=== PATIENT | female | born 1970 | race Caucasian/White ===

== ENCOUNTER 2022-07-09 17:50 | Inpatient (IN) | payer OTHER, SELFPAY ==
--- NOTE | 2022-07-09 17:51 | ED_ITS ---
HPI - General Adult General Chief complaint: Psychiatric Symptoms <EDNA Olea - Last Filed: 07/09/22 19:50> Stated complaint: Hallucinations <EDNA Olea - Last Filed: 07/09/22 19:50> Time Seen by Provider: 07/09/22 19:50 <EDNA Olea - Last Filed: 07/09/22 19:50> Source: patient and EMS <EDNA Olea - Last Filed: 07/09/22 19:50> Mode of arrival: EMS <EDNA Olea - Last Filed: 07/09/22 19:50> Limitations: no limitations <EDNA Olea - Last Filed: 07/09/22 19:50> History of Present Illness HPI narrative: This is a 52-year-old female self-reported history of anxiety, panic attack, depression, schizophrenia, bipolar disorder presenting to the emergency department after she relapsed on crack and heroin, she tells me that she is currently seeing and hearing voices that are telling her to harm herself and other people, she tells me she does not have a particular plan and she is not sure if she would do it. She reports that she is on methadone however today use crack and heroin. She has not been taking her medications as prescribed. Patient denies alcohol, tobacco. Denies any medical complaints at this time. <EDNA Olea - Last Filed: 07/09/22 19:50> Related Data Home medications: Home Medications Medication Instructions Recorded Confirmed albuterol sulfate 2.5 mg/3 mL 1 vial inhalation Q6H PRN 07/10/22 07/10/22 (0.083 %) solution for nebulization Shortness Of Breath albuterol sulfate 90 mcg/actuation 2 puff inhalation Q4H PRN wheezing 07/10/22 07/10/22 aerosol inhaler (Ventolin HFA) clonidine HCl 0.1 mg tablet 1 tab PO BID PRN Anxiety 07/10/22 07/10/22 fluticasone propionate 110 2 puff inhalation BID asthma 07/10/22 07/10/22 mcg/actuation HFA aerosol inhaler (Flovent HFA) methadone 10 mg/mL oral concentrate 50 mg PO BID 07/10/22 07/10/22 <EDNA Olea - Last Filed: 07/09/22 19:50> Allergies/adverse reactions: Allergies Allergy/AdvReac Type Severity Reaction Status Date / Time Sulfa (Sulfonamide Allergy Unknown UNKNOWN Unverified 05/14/20 16:01 Antibiotics) [SULFA (SULFONAMIDE ANTIBIOTICS)] <EDNA Olea - Last Filed: 07/09/22 19:50> Review of Systems Review of Systems: Constitutional : No Fever, No Chills ENT/Mouth : No Ear Pain, No Nasal Congestion, No sore throat Eyes: No Eye Pain, No Swelling, No Redness Cardiovascular : No Chest Pain, No SOB Respiratory : No Cough, No Sputum, No Dyspnea Gastrointestinal : No Nausea, No Vomiting, No Diarrhea, No Hematochezia, No Melena Genitourinary : No Dysuria, No Urinary Frequency, No Hematuria Musculoskeletal : No Myalgias Skin : No Skin Lesions, No rash Neuro : No Weakness, No Numbness, No Paresthesias, No Dizziness, No Headache Psych : positive Anxiety, positive Depression, positive SI/HI, + V/A/T hallucinations All other systems reviewed and are negative <EDNA Olea - Last Filed: 07/09/22 19:50> Yes all other systems are reviewed and are negative <EDNA Olea - Last Filed: 07/09/22 19:50> PMFSH Past Medical History Attestation statement: The following information was validated with the patient. <EDNA Olea - Last Filed: 07/09/22 19:50> Source: old records reviewed and nursing notes reviewed <EDNA Olea - Last Filed: 07/09/22 19:50> Social History Social History: Social History Smoked in Last 30 Days: No Use of substances other than those prescribed or required for medical reasons: Yes Substance Use Type: Crack/Cocaine and Heroin Substance Use Frequency: Recent Binge Last Used Substance: Just Prior to Admission Any prior treatment program specific to substance use: No Advance Directives: No <EDNA Olea Last Filed: 07/09/22 19:50> Physical Exam ED Vital Signs: Vital Signs - 24 hr 07/09/22 17:58 07/09/22 23:51 07/10/22 07:24 Temperature 98.5 F 98.6 F Pulse Rate 59 56 Respiratory Rate 16 16 16 Blood Pressure 146/65 H 169/88 H Pulse Oximetry 98 99 Oxygen Delivery Method Room Air Room Air BMI result Body Mass Index 30.0 vss <EDNA Olea - Last Filed: 07/09/22 19:50> Vital Signs - 24 hr 07/09/22 17:58 07/09/22 23:51 07/10/22 07:24 Temperature 98.5 F 98.6 F Pulse Rate 59 56 Respiratory Rate 16 16 16 Blood Pressure 146/65 H 169/88 H Pulse Oximetry 98 99 Oxygen Delivery Method Room Air Room Air BMI result Body Mass Index 30.0 <Lelo Wahl MD - Last Filed: 07/10/22 12:24> Appearance: Alert.? Oriented X3.? No acute distress.? Head: Normocephalic, atraumatic, no step-offs or deformities Eyes: Pupils equal, round and reactive to light.? Neck: Normal inspection.? Neck supple.? CVS: Normal heart rate and rhythm.? Pulses normal.? Respiratory: No respiratory distress.? Breath sounds normal.? Abdomen: Soft and nontender.? Skin: Skin warm and dry.? Normal skin color.? Normal skin turgor.? Extremities: No lower extremity edema.? No calf ttp. 5/5 strength to bilateral upper and lower extremities Neuro: Oriented X 3.? No motor deficit.? No sensory deficit. CN 2-12 intact <EDNA Olea - Last Filed: 07/09/22 19:50> Course Reevaluation(s) Reevaluation #1: CBC appears to be within normal limits, chemistry with no acute e lectrolyte abnormalities requiring intervention. Urine clean. Urine toxicology positive for opiates, fentanyl, cocaine. Salicylates, acetaminophen negative. Ethanol negative. COVID negative. At this time patient will be placed into physician observation to allow more time to be evaluated by the behavioral health team. At time observation was started patient common cooperative no acute distress will continue to monitor. <EDNA Olea Last Filed: 07/09/22 19:50> Time: 19:49 <EDNA Olea - Last Filed: 07/09/22 19:50> Reevaluation #2: 52-year-old female here for substance abuse and hallucination, has been evaluated by [facility] bed search is underway, stable vital signs, no events overnight reported by the nurse, continue with physician observation. <Lelo Wahl MD - Last Filed: 07/10/22 12:24> Time: 12:23 <Lelo Wahl MD - Last Filed: 07/10/22 12:24> Medications Administered Generic Name Dose Route Start Last Admin Trade Name Freq PRN Reason Stop Dose Admin Methadone HCl 50 mg 07/10/22 10:00 07/10/22 10:30 Methadone Hcl 20 Mg/2 Ml Oral.Conc PO 50 mg BID REGINE Administration <EDNA Olea - Last Filed: 07/09/22 19:50> Medications Administered Generic Name Dose Route Start Last Admin Trade Name Freq PRN Reason Stop Dose Admin Methadone HCl 50 mg 07/10/22 10:00 07/10/22 10:30 Methadone Hcl 20 Mg/2 Ml Oral.Conc PO 50 mg BID REGINE Administration <Lelo Wahl MD - Last Filed: 07/10/22 12:24> Medical Decision Making [facility] Narrative Medical decision making narrative: 1829 52-year-old female presents with substance abuse, visual, auditory and tactile hallucinations, passive SI and HI. Physical examination benign however patient intermittently speaking to herself. Plan medical clearance evaluation by the behavioral health team. <EDNA Olea - Last Filed: 07/09/22 19:50> Medical Records Medical records reviewed: Yes I reviewed the patient's medical records. <EDNA Olea - Last Filed: 07/09/22 19:50> Lab Data Lab results reviewed: Yes I reviewed the patient's lab results. <EDNA Olea - Last Filed: 07/09/22 19:50> Result diagrams: : 07/09/22 18:48 07/09/22 18:48 <EDNA Olea - Last Filed: 07/09/22 19:50> Labs: Lab Results 07/09/22 07/09/22 07/09/22 Range/Units 18:14 18:14 18:14 WBC (4.8-10.8) X10*3/uL RBC (4.20-5.50) X10*6/uL Hgb (12.0-16.0) g/dl Hct (37.0-47.0) % MCV (80.0-98.0) fL MCH (27.0-33.0) pg MCHC (31.0-35.0) g/dl RDW (11.0-16.0) % Plt Count (160-400) X10*3/uL MPV (9.4-12.3) fL Immature Gran % (Auto) (0.0-0.4) % Neut % (Auto) (45-73) % Lymph % (Auto) (20-40) % [place] % (Auto) (2-11) % Eos % (Auto) (0-4) % Baso % (Auto) (0-2) % Lymph # (Auto) (1.2-4.9) X10*3/uL [place] # (Auto) (0.1-1.2) X10*3/uL Eos # (Auto) (0.0-0.4) X10*3/uL Baso # (Auto) (0.0-0.2) X10*3/uL Abs Immat Gran (auto) (0.00-0.03) X10*3/uL Absolute Neuts (auto) (2.0-8.3) x10*3/uL Absolute Nucleated RBC (0.0-0.012) X10*3/uL Nucleated RBC % (auto) (0.0-0.2) /100WBC Sodium (135-145) mmol/L Potassium (3.3-5.1) mmol/L Chloride (96-108) mmol/L Carbon Dioxide (22-29) mmol/L Anion Gap (12-20) BUN (9-16) mg/dL Creatinine (0.5-1.4) mg/dL Estim Creat Clear Calc Estimated GFR Random Glucose (60-115) mg/dL Calcium (8.4-10.2) mg/dL Magnesium (1.6-2.6) mg/dL Total Bilirubin (0.0-1.0) mg/dL AST (5-31) U/L ALT (0-31) U/L Alkaline Phosphatase (39-117) U/L Total Protein (6.5-8.0) g/dL Albumin (3.5-5.0) g/dL Urine Color Yellow Urine Appearance Clear Urine pH 7.5 (5.0-9.0) Ur Specific [place] 1.015 (1.005-1.025) Urine Protein Negative (Neg-Trace) mg/dL Urine Glucose (UA) Negative (Negative) mg/dL Urine Ketones Negative (Negative) mg/dL Urine Blood Negative (Negative) Urine Nitrite Negative (Negative) Ur Leukocyte Esterase Negative (Negative) Salicylates (15-30) mg/dL Urine Opiates Screen POSITIVE H (Not Detect) Urine Fentanyl Screen POSITIVE H (Not Detect) Acetaminophen (<30) mcg/mL Ur Barbiturates Screen Not Detected (Not Detect) Ur Phencyclidine Scrn Not Detected (Not Detect) Ur Amphetamines Screen Not Detected (Not Detect) U Benzodiazepines Scrn Not Detected (Not Detect) Urine Cocaine Screen POSITIVE H (Not Detect) U Marijuana (THC) Screen Not Detected (Not Detect) Ethyl Alcohol mg/dL COVID-19 (ISAAC) Negative (Negative) COVID-19 Clin Com See Note 07/09/22 07/09/22 Range/Units 18:48 18:48 WBC 7.9 (4.8-10.8) X10*3/uL RBC 4.03 L (4.20-5.50) X10*6/uL Hgb 11.4 L (12.0-16.0) g/dl Hct 35.3 L (37.0-47.0) % MCV 87.6 (80.0-98.0) fL MCH 28.3 (27.0-33.0) pg MCHC 32.3 (31.0-35.0) g/dl RDW 13.0 (11.0-16.0) % Plt Count 222 (160-400) X10*3/uL MPV 10.1 (9.4-12.3) fL Immature Gran % (Auto) 0.1 (0.0-0.4) % Neut % (Auto) 59.2 (45-73) % Lymph % (Auto) 32.2 (20-40) % [place] % (Auto) 6.5 (2-11) % Eos % (Auto) 1.4 (0-4) % Baso % (Auto) 0.6 (0-2) % Lymph # (Auto) 2.5 (1.2-4.9) X10*3/uL [place] # (Auto) 0.5 (0.1-1.2) X10*3/uL Eos # (Auto) 0.1 (0.0-0.4) X10*3/uL Baso # (Auto) 0.1 (0.0-0.2) X10*3/uL Abs Immat Gran (auto) 0.01 (0.00-0.03) X10*3/uL Absolute Neuts (auto) 4.7 (2.0-8.3) x10*3/uL Absolute Nucleated RBC 0.000 (0.0-0.012) X10*3/uL Nucleated RBC % (auto) 0.0 (0.0-0.2) /100WBC Sodium 141 (135-145) mmol/L Potassium 3.7 (3.3-5.1) mmol/L Chloride 104 (96-108) mmol/L Carbon Dioxide 27 (22-29) mmol/L Anion Gap 14 (12-20) BUN 17 H (9-16) mg/dL Creatinine 0.84 (0.5-1.4) mg/dL Estim Creat Clear Calc 78.9 Estimated GFR > 60 Random Glucose 98 (60-115) mg/dL Calcium 8.8 (8.4-10.2) mg/dL Magnesium 1.9 (1.6-2.6) mg/dL Total Bilirubin 0.3 (0.0-1.0) mg/dL AST 49 H (5-31) U/L ALT 35 H (0-31) U/L Alkaline Phosphatase 91 (39-117) U/L Total Protein 6.5 (6.5-8.0) g/dL Albumin 3.9 (3.5-5.0) g/dL Urine Color Urine Appearance Urine pH (5.0-9.0) Ur Specific [place] (1.005-1.025) Urine Protein (Neg-Trace) mg/dL Urine Glucose (UA) (Negative) mg/dL Urine Ketones (Negative) mg/dL Urine Blood (Negative) Urine Nitrite (Negative) Ur Leukocyte Esterase (Negative) Salicylates < 5.0 L (15-30) mg/dL Urine Opiates Screen (Not Detect) Urine Fentanyl Screen (Not Detect) Acetaminophen < 1 (<30) mcg/mL Ur Barbiturates Screen (Not Detect) Ur Phencyclidine Scrn (Not Detect) Ur Amphetamines Screen (Not Detect) U Benzodiazepines Scrn (Not Detect) Urine Cocaine Screen (Not Detect) U Marijuana (THC) Screen (Not Detect) Ethyl Alcohol < 10 mg/dL COVID-19 (ISAAC) (Negative) COVID-19 Clin Com <EDNA Olea - Last Filed: 07/09/22 19:50> Lab Results 07/09/22 07/09/22 07/09/22 Range/Units 18:14 18:14 18:14 WBC (4.8-10.8) X10*3/uL RBC (4.20-5.50) X10*6/uL Hgb (12.0-16.0) g/dl Hct (37.0-47.0) % MCV (80.0-98.0) fL MCH (27.0-33.0) pg MCHC (31.0-35.0) g/dl RDW (11.0-16.0) % Plt Count (160-400) X10*3/uL MPV (9.4-12.3) fL Immature Gran % (Auto) (0.0-0.4) % Neut % (Auto) (45-73) % Lymph % (Auto) (20-40) % [place] % (Auto) (2-11) % Eos % (Auto) (0-4) % Baso % (Auto) (0-2) % Lymph # (Auto) (1.2-4.9) X10*3/uL [place] # (Auto) (0.1-1.2) X10*3/uL Eos # (Auto) (0.0-0.4) X10*3/uL Baso # (Auto) (0.0-0.2) X10*3/uL Abs Immat Gran (auto) (0.00-0.03) X10*3/uL Absolute Neuts (auto) (2.0-8.3) x10*3/uL Absolute Nucleated RBC (0.0-0.012) X10*3/uL Nucleated RBC % (auto) (0.0-0.2) /100WBC Sodium (135-145) mmol/L Potassium (3.3-5.1) mmol/L Chloride (96-108) mmol/L Carbon Dioxide (22-29) mmol/L Anion Gap (12-20) BUN (9-16) mg/dL Creatinine (0.5-1.4) mg/dL Estim Creat Clear Calc Estimated GFR Random Glucose (60-115) mg/dL Calcium (8.4-10.2) mg/dL Magnesium (1.6-2.6) mg/dL Total Bilirubin (0.0-1.0) mg/dL AST (5-31) U/L ALT (0-31) U/L Alkaline Phosphatase (39-117) U/L Total Protein (6.5-8.0) g/dL Albumin (3.5-5.0) g/dL Urine Color Yellow Urine Appearance Clear Urine pH 7.5 (5.0-9.0) Ur Specific [place] 1.015 (1.005-1.025) Urine Protein Negative (Neg-Trace) mg/dL Urine Glucose (UA) Negative (Negative) mg/dL Urine Ketones Negative (Negative) mg/dL Urine Blood Negative (Negative) Urine Nitrite Negative (Negative) Ur Leukocyte Esterase Negative (Negative) Salicylates (15-30) mg/dL Urine Opiates Screen POSITIVE H (Not Detect) Urine Fentanyl Screen POSITIVE H (Not Detect) Acetaminophen (<30) mcg/mL Ur Barbiturates Screen Not Detected (Not Detect) Ur Phencyclidine Scrn Not Detected (Not Detect) Ur Amphetamines Screen Not Detected (Not Detect) U Benzodiazepines Scrn Not Detected (Not Detect) Urine Cocaine Screen POSITIVE H (Not Detect) U Marijuana (THC) Screen Not Detected (Not Detect) Ethyl Alcohol mg/dL COVID-19 (ISAAC) Negative (Negative) COVID-19 Clin Com See Note 07/09/22 07/09/22 Range/Units 18:48 18:48 WBC 7.9 (4.8-10.8) X10*3/uL RBC 4.03 L (4.20-5.50) X10*6/uL Hgb 11.4 L (12.0-16.0) g/dl Hct 35.3 L (37.0-47.0) % MCV 87.6 (80.0-98.0) fL MCH 28.3 (27.0-33.0) pg MCHC 32.3 (31.0-35.0) g/dl RDW 13.0 (11.0-16.0) % Plt Count 222 (160-400) X10*3/uL MPV 10.1 (9.4-12.3) fL Immature Gran % (Auto) 0.1 (0.0-0.4) % Neut % (Auto) 59.2 (45-73) % Lymph % (Auto) 32.2 (20-40) % [place] % (Auto) 6.5 (2-11) % Eos % (Auto) 1.4 (0-4) % Baso % (Auto) 0.6 (0-2) % Lymph # (Auto) 2.5 (1.2-4.9) X10*3/uL [place] # (Auto) 0.5 (0.1-1.2) X10*3/uL Eos # (Auto) 0.1 (0.0-0.4) X10*3/uL Baso # (Auto) 0.1 (0.0-0.2) X10*3/uL Abs Immat Gran (auto) 0.01 (0.00-0.03) X10*3/uL Absolute Neuts (auto) 4.7 (2.0-8.3) x10*3/uL Absolute Nucleated RBC 0.000 (0.0-0.012) X10*3/uL Nucleated RBC % (auto) 0.0 (0.0-0.2) /100WBC Sodium 141 (135-145) mmol/L Potassium 3.7 (3.3-5.1) mmol/L Chloride 104 (96-108) mmol/L Carbon Dioxide 27 (22-29) mmol/L Anion Gap 14 (12-20) BUN 17 H (9-16) mg/dL Creatinine 0.84 (0.5-1.4) mg/dL Estim Creat Clear Calc 78.9 Estimated GFR > 60 Random Glucose 98 (60-115) mg/dL Calcium 8.8 (8.4-10.2) mg/dL Magnesium 1.9 (1.6-2.6) mg/dL Total Bilirubin 0.3 (0.0-1.0) mg/dL AST 49 H (5-31) U/L ALT 35 H (0-31) U/L Alkaline Phosphatase 91 (39-117) U/L Total Protein 6.5 (6.5-8.0) g/dL Albumin 3.9 (3.5-5.0) g/dL Urine Color Urine Appearance Urine pH (5.0-9.0) Ur Specific [place] (1.005-1.025) Urine Protein (Neg-Trace) mg/dL Urine Glucose (UA) (Negative) mg/dL Urine Ketones (Negative) mg/dL Urine Blood (Negative) Urine Nitrite (Negative) Ur Leukocyte Esterase (Negative) Salicylates < 5.0 L (15-30) mg/dL Urine Opiates Screen (Not Detect) Urine Fentanyl Screen (Not Detect) Acetaminophen < 1 (<30) mcg/mL Ur Barbiturates Screen (Not Detect) Ur Phencyclidine Scrn (Not Detect) Ur Amphetamines Screen (Not Detect) U Benzodiazepines Scrn (Not Detect) Urine Cocaine Screen (Not Detect) U Marijuana (THC) Screen (Not Detect) Ethyl Alcohol < 10 mg/dL COVID-19 (ISAAC) (Negative) COVID-19 Clin Com <Lelo Wahl MD - Last Filed: 07/10/22 12:24> Critical Care Time Critical Care Time Critical Care Time: No <EDNA Olea - Last Filed: 07/09/22 19:50> Discharge Plan Discharge Clinical Impression: Suicidal ideation, Depression, Acute anxiety, Hallucinations <EDNA Olea - Last Filed: 07/09/22 19:50> Patient Disposition: Still a Patient <EDNA Olea - Last Filed: 07/09/22 19:50> Prescriptions: No Action clonidine HCl 0.1 mg tablet 1 tab PO BID PRN (Reason: Anxiety) albuterol sulfate 2.5 mg /3 mL (0.083 %) solution for nebulization 1 vial inhalation Q6H PRN (Reason: Shortness Of Breath) albuterol sulfate [Ventolin HFA] 90 mcg/actuation HFA aerosol inhaler 2 puff inhalation Q4H PRN (Reason: wheezing) fluticasone propionate [Flovent HFA] 110 mcg/actuation HFA aerosol inhaler 2 puff inhalation BID methadone 10 mg/mL Concentrate 50 mg PO BID Rx Instructions: per per [facility] ([phone]). see pharmacy note <EDNA Olea - Last Filed: 07/09/22 19:50>
[2022-07-09 17:58] VITALS: BP 116/74; BP 146/65; PULSE 59; PULSE 64; RESP 16; TEMP 36.9; O2SAT 97; O2SAT 98
[2022-07-09 18:24] LABS: Appearance Urine Clear; Color Urine Yellow; Glucose Urine UA Negative (Negative); Leukocyte Esterase Urine Negative (Negative); Nitrite Urine Negative (Negative); PH 7.5 (5.0-9.0); Specific Gravity - Urine 1.015 (1.005-1.025); Urine Blood Negative (Negative); Urine Ketones Negative (Negative); Urine Protein Negative (Neg-Trace)
[2022-07-09 18:34] LABS: Amphetamine Screen Urine Not Detected (Not Detect); Barbiturates, Urine Not Detected (Not Detect); Benzodiazepines Screen Urine Not Detected (Not Detect); Cannabinoid Screen Urine Not Detected (Not Detect); Cocaine Screen Urine POSITIVE (Not Detect); Fentanyl, urine POSITIVE (Not Detect); Opiate Screen Urine POSITIVE (Not Detect); Phencyclidine Screen Urine Not Detected (Not Detect)
[2022-07-09 18:51] LABS: COVID-19 Test Negative (Negative); IDNOW Serial# 08D9AD1C
[2022-07-09 18:51] LABS: MANUAL DIFF FLAG NO
[2022-07-09 18:56] LABS: Basophils Absolute Auto 0.1 X10*3/uL (0.0-0.2); Basophils Percent Auto 0.6 % (0-2); Eosinophils Absolute Auto 0.1 X10*3/uL (0.0-0.4); Eosinophils Percent Auto 1.4 % (0-4); Hematocrit 35.3 % (37.0-47.0); Hemoglobin 11.4 g/dl (12.0-16.0); Imm Gran Abs Auto 0.01 X10*3/uL (0.00-0.03); Imm Gran Pct Auto 0.1 % (0.0-0.4); Lymphocytes Absolute Auto 2.5 X10*3/uL (1.2-4.9); Lymphocytes Percent Auto 32.2 % (20-40); Mean Corpuscular HGB Conc 32.3 g/dl (31.0-35.0); Mean Corpuscular Hemoglobin 28.3 pg (27.0-33.0); Mean Corpuscular Volume 87.6 fL (80.0-98.0); Mean Platelet Volume 10.1 fL (9.4-12.3); Monocytes Absolute Auto 0.5 X10*3/uL (0.1-1.2); Monocytes Percent Auto 6.5 % (2-11); Neutrophils Absolute Auto 4.7 x10*3/uL (2.0-8.3); Neutrophils Percent Auto 59.2 % (45-73); Platelet Count 222 X10*3/uL (160-400); Red Blood Count 4.03 X10*6/uL (4.20-5.50); White Blood Count 7.9 X10*3/uL (4.8-10.8)
[2022-07-09 19:09] LABS: Acetaminophen LAB < 1 mcg/mL (<30); Alanine Aminotransferase 35 U/L (0-31); Albumin Level 3.9 g/dL (3.5-5.0); Alkaline Phosphatase 91 U/L (39-117); Anion Gap 14 (12-20); Aspartate Amino Transferase 49 U/L (5-31); Bilirubin Total 0.3 mg/dL (0.0-1.0); Blood Urea Nitrogen 17 mg/dL (9-16); Calcium 8.8 mg/dL (8.4-10.2); Carbon Dioxide 27 mmol/L (22-29); Chloride 104 mmol/L (96-108); Creatinine Clr Calc Pharmacy 78.9; Estimated Glomerular Filt Rate > 60; Ethanol < 10 mg/dL; Glucose Random 98 mg/dL (60-115); Magnesium 1.9 mg/dL (1.6-2.6); Potassium 3.7 mmol/L (3.3-5.1); Salicylate < 5.0 mg/dL (15-30); Sodium 141 mmol/L (135-145); Total Protein 6.5 g/dL (6.5-8.0)
[2022-07-09 23:51] VITALS: BP 169/88; PULSE 56; RESP 16; TEMP 37; O2SAT 99
--- OUTSIDE RECORDS SUMMARY | 2022-07-10 03:18 | XMS_ITS | Continuity of Care Document ---
:1970 Author Organization [facility] Address [address] [place] [id number]- Care Team Providers Name Role Phone Passer Ame BISHOP Primary Care Physician [phone] Encounter [facility] Date(s): 11/08/21 - 12/22/[address] [address] Attending Physician: Stoney Greco Admitting Physician: Stoney Greco Referring Physician: Stoney Greco Allergies, Adverse Reactions, Alerts Substance Reaction Severity Status sulfa drugs Active Immunizations Given and Recorded Vaccine Date Status Refusal Reason influenza virus vaccine, inactivated 07/19/21 Recorded tetanus/diphtheria/pertussis, acel(Tdap) 07/19/21 Recorde d SARS-CoV-2 (COVID-19) mRNA-1273 vaccine 01/11/21 Recorded Medications albuterol CFC free 90 mcg/inh inhalation aerosol 2, puffs, Inhalation, 4 times a day, PRN, # 8.5 Gm, Refills 0, Tot. Refills 0, Maintenance, 10/20/2109:09:00 EST, Aerosol, Route to Pharmacy Electronically, NCPDP_[id number], [id number], 162.5, cm, 10/20/20 9:49:00 EST, Height... Start Date: 10/20/20 Status: OrderedBoostrix (Tdap) intramuscular suspension 0.5 mL, Intramuscular, Once, # 5 mL, 0 Refills, Soft Stop, 07/19/21 9:13:00 EST, Suspension, [facility]-[id number], Partial fill upon patient request if the prescription is for a schedule II opioid drug., 0.5 mL Intramuscular Once, 162.5,... Start Date: 07/19/21 Status: OrderedcloNIDine 0.1 mg oral tablet Refills 0, Maintenance, 07/19/21 8:37:00 EST, Partial fill upon patient request if the prescription is for a schedule II opioid drug. Start Date: 07/19/21 Status: OrderedFlovent HFA 110 mcg/inh inhalation aerosol 2 puffs, Inhalation, 2 times a day, for asthma control rinse mouth and throat after use label in bermudian, # 12 Gm, 11 Refills, Maintenance, 07/19/21 9:05:00 EST, Aerosol, [id number], Partial fill upon patient request if the p... Start Date: 07/19/21 Status: Orderedinfluenza virus vaccine, inactivated adjuvanted preservative-free quadrivalent intramuscular susp 0.5 mL, Intramuscular, Once, # 0.5 mL, 0 Refills, Soft Stop, 07/19/21 9:13:00 EST, Suspension, [id number], Partial fill upon patient request if the prescription is for a schedule II opioid drug., 0.5 mL Intramuscular Once, 162.... Start Date: 07/19/21 Status: OrderedMethadone = 70 mg, By Mouth, Daily, 0 Refills, Maintenance, 10/15/20 2:11:00 EST, Partial fill upon patient request if the prescription is for a schedule II opioid drug. Start Date: 10/15/20 Status: Orderednabumetone 750 mg oral tablet 1 tablet, By Mouth, 2 times a day with meals, FOR BACK AND SHOULDER PAIN., # 56 tablet, 5 Refills, [facility], 162.5, cm, 11/03/21 10:17:00 EST, Height, 54.54, kg, 10/15/20 0:39:00 EST, DryWeight Start Date: 12/09/21 Status: Orderedomeprazole 20 mg oral enteric coated capsule 1 capsule = 20 mg, By Mouth, Daily, for gastritis label in bermudian, # 30 capsule, 6 Refills, Maintenance, 07/19/21 9:09:00 EST, EC Capsule, [facility]-[id number], Partial fill upon patientrequest if the prescription is for a schedule II... Start Date: 07/19/21 Status: Orderedprazosin 1 mg oral capsule 1 mg, 1, capsule, By Mouth, 3 times a day, Refills 0, Maintenance, 07/19/21 8:37:00 EST, Partial fill upon patient request if the prescription is for a schedule II opioid drug. Start Date: 07/19/21 Status: OrderedProAir HFA 90 mcg/inh inhalation aerosol 2 puffs, Inhalation, Every 4 hours, PRN as needed for wheezing, label in bermudian, # 8.5 Gm, 11 Refills, Maintenance, 07/19/21 9:09:00 EST, Aerosol, [facility]-[id number], Partial fill uponpatient request if the prescription is for a sche... Start Date: 07/19/21 Status: OrderedSenna 8.6 mg oral tablet 8.6 mg, 1, tablet, By Mouth, Daily at bedtime, for constipation with plenty of water label in bermudian, # 100 tablet, Refills 6, Tot. Refills 6, Maintenance, 07/19/21 9:09:00 EST, Route to Pharmacy Electronically, [facility]-[id number],... Start Date: 07/19/21 Status: OrderedSEROquel 300 mg oral tablet 1 tablet = 300 mg, By Mouth, 2 times a day, 0 Refills, Maintenance, 07/19/21 8:38:00 EST, Partial fill upon patient request if the prescription is for a schedule II opioid drug. Start Date: 07/19/21 Status: OrderedtiZANidine 2 mg oral tablet 1, tablet, By Mouth, 3 times a day, FOR MUSCLE PAIN., # 90 tablet, Refills 1, Route to Pharmacy Electronically, [facility], 162.5, cm, 11/03/21 10:17:00 EST, Height, 54.54, kg, 10/15/20 0:39:00 EST, Dry Weight Start Date: 11/16/21 Status: OrderedTrileptal 150 mg oral tablet 150 mg, 1, tablet, By Mouth, 2 times a day, Refills 0, Maintenance, 07/19/21 8:37:00 EST, Partial fill upon patient request if the prescription is for a schedule II opioid drug. Start Date: 07/19/21 Status: OrderedZyPREXA 10 mg oral tablet 10 mg, 1, tablet, By Mouth, Daily, Refills 0, Maintenance, 07/19/21 8:37:00 EST, Partial fill upon patient request if the prescription is for a schedule II opioid drug. Start Date: 07/19/21 Status: Ordered Problem List Condition Effective Dates Status Health Status Informant Chronic back pain(Confirmed) Active Constipation(Confirmed) Active Frequent headaches(Confirmed) Active Chronic joint pain(Confirmed) Active Low back pain(Confirmed) Active Asthma, moderate persistent(Confirmed) Active *[facility] [phone](Confirmed) Polysubstance abuse (cocaine, Active opiate)(Confirmed) Varicose vein(Confirmed) Active Venous insufficiency(Confirmed) Active Social History Social History Type Response Smoking Status Never smoker entered on: 02/03/15 Sex
--- OUTSIDE RECORDS SUMMARY | 2022-07-10 03:18 | XMS_ITS | Continuity of Care Document ---
:1970 Author Organization [facility] enter/[facility] [place] Address Unavailable , Care Team Providers Name Role Phone Passer Ame BISHOP Primary Care Physician Encounter [facility] [place] Date(s): 09/21/21 - 10/21/21 [facility] Allergies, Adverse Reactions, Alerts Substance Reaction Severity Status sulfa drugs Active Immunizations Given and Recorded Vaccine Date Status Refusal Reason influenza virus vaccine, inactivated 07/19/21 Recorded tetanus/diphtheria/pertussis, acel(Tdap) 07/19/21 Recorde d SARS-CoV-2 (COVID-19) [id number] vaccine 01/11/21 Recorded Medications albuterol CFC free 90 mcg/inh inhalation aerosol 2, puffs, Inhalation, 4 times a day, PRN, # 8.5 Gm, Refills 0, Tot. Refills 0, Maintenance, 10/20/2109:09:00 EST, Aerosol, Route to Pharmacy Electronically, NCPDP_[id number], [facility]-20199, 162.5, cm, 10/20/20 9:49:00 EST, Height... Start Date: 10/20/20 Status: OrderedBoostrix (Tdap) intramuscular suspension 0.5 mL, Intramuscular, Once, # 5 mL, 0 Refills, Soft Stop, 07/19/21 9:13:00 EST, Suspension, [id number], Partial fill upon patient request if [...] mouth and throat after use label in [place], # 12 Gm, 11 Refills, Maintenance, 07/19/21 9:05:00 EST, Aerosol, [facility], Partial fill upon patient request if the p... Start Date: 07/19/21 Status: Orderedinfluenza virus vaccine, inactivated adjuvanted preservative-free quadrivalent intramuscular susp 0.5 mL, Intramuscular, Once, # 0.5 mL, 0 Refills, Soft Stop, 07/19/21 9:13:00 EST, Suspension, [id number], Partial fill upon patient request if the prescription is for a schedule II opioid drug., 0.5 mL Intramuscular Once, 162.... Start Date: 07/19/21 Status: OrderedMethadone = 70 mg, By Mouth, Daily, 0 Refills, Maintenance, 10/15/20 2:11:00 EST, Partial fill upon patient request if the prescription is for a schedule II opioid drug. Start Date: 10/15/20 Status: Orderednabumetone 750 mg oral tablet 1 tablet = 750 mg, By Mouth, 2 times a day, in place of naprosynn for back and shoulder pain with food label in [place], # 60 tablet, 2 Refills, Maintenance, 09/27/21 15:04:00 EST, Tablet, [id number], Partial fill upon patien... Start Date: 09/27/21 Status: Orderedomeprazole 20 mg oral enteric coated capsule 1 capsule = 20 mg, By Mouth, Daily, for gastritis label in [place], # 30 capsule, 6 Refills, Maintenance, 07/19/21 9:09:00 EST, EC Capsule, [facility], Partial fill upon patientrequest if the [...] PRN as needed for wheezing, label in [place], # 8.5 Gm, 11 Refills, Maintenance, 07/19/21 9:09:00 EST, Aerosol, [facility], Partial fill uponpatient request if the prescription is for a sche... Start Date: 07/19/21 Status: OrderedSenna 8.6 mg oral tablet 8.6 mg, 1, tablet, By Mouth, Daily at bedtime, for constipation with plenty of water label in [place], # 100 tablet, Refills 6, Tot. Refills 6, Maintenance, 07/19/21 9:09:00 EST, Route to Pharmacy Electronically, [id number],... Start Date: 07/19/21 Status: OrderedSEROquel 300 mg oral tablet 1 tablet = 300 mg, By Mouth, 2 times a day, 0 Refills, Maintenance, 07/19/21 8:38:00 EST, Partial fill upon patient request if the prescription is for a schedule II opioid drug. Start Date: 07/19/21 Status: OrderedtiZANidine 2 mg oral tablet 2 mg, 1, tablet, By Mouth, 3 times a day, for muscle pain label in [place], # 90 tablet, Refills 0, Tot. Refills 0, Maintenance, 09/27/21 15:04:00 EST, Route to Pharmacy Electronically, [facility], Partial fill upon patient re... 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
--- OUTSIDE RECORDS SUMMARY | 2022-07-10 03:18 | XMS_ITS | Continuity of Care Document ---
:1970 Author Organization [facility] Address [address] [place] [id number]- Care Team Providers Name Role Phone Passer Ame BISHOP Primary Care Physician Encounter [facility] [place] Date(s): 11/26/21 - 12/31/[address] [id number] Attending Physician: Stoney Greco Admitting Physician: Stoney [...] 10/20/2109:09:00 EST, Aerosol, Route to Pharmacy Electronically, NCPDP_[id number], [facility]-[address], 162.5, cm, 10/20/20 9:49:00 EST, Height... Start Date: 10/20/20 Status: OrderedBoostrix (Tdap) intramuscular suspension 0.5 mL, Intramuscular, Once, # 5 mL, 0 Refills, Soft Stop, 07/19/21 9:13:00 EST, Suspension, [facility], Partial fill upon patient request if the [...] mouth and throat after use label in tanzanian, # 12 Gm, 11 Refills, Maintenance, 07/19/21 9:05:00 EST, Aerosol, [facility], Partial fill upon patient request if the p... Start Date: 07/19/21 Status: Orderedinfluenza virus vaccine, inactivated adjuvanted preservative-free quadrivalent intramuscular susp 0.5 mL, Intramuscular, Once, # 0.5 mL, 0 Refills, Soft Stop, 07/19/21 9:13:00 EST, Suspension, [id number], Partial fill upon patient request if the [...] SHOULDER PAIN., # 56 tablet, 5 Refills, [facility] [place], 162.5, cm, 11/03/21 10:17:00 EST, Height, 54.54, kg, 10/15/20 0:39:00 EST, DryWeight Start Date: 12/09/21 Status: Orderedomeprazole 20 mg oral enteric coated capsule 1 capsule = 20 mg, By Mouth, Daily, for gastritis label in tanzanian, # 30 capsule, 6 Refills, Maintenance, 07/19/21 9:09:00 EST, EC Capsule, [id number], Partial fill upon patientrequest if the prescription [...] PRN as needed for wheezing, label in tanzanian, # 8.5 Gm, 11 Refills, Maintenance, 07/19/21 9:09:00 EST, Aerosol, [facility], Partial fill uponpatient request if the prescription is for a sche... Start Date: 07/19/21 Status: OrderedSenna 8.6 mg oral tablet 8.6 mg, 1, tablet, By Mouth, Daily at bedtime, for constipation with plenty of water label in tanzanian, # 100 tablet, Refills 6, Tot. Refills 6, Maintenance, 07/19/21 9:09:00 EST, Route to Pharmacy Electronically, [id number],... 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
--- OUTSIDE RECORDS SUMMARY | 2022-07-10 03:18 | XMS_ITS | Continuity of Care Document ---
:1970 Author Organization [facility] enter/[facility] Address Unavailable , Care Team Providers Name Role Phone Passer Ame BISHOP Primary Care Physician [place] [facility] [place] [facility] [place]27[place] 10[place]27/21 [facility] Attending Physician: Nani Alonso Admitting Physician: Nani Alonso Referring Physician: Nani Alonso Allergies, Adverse Reactions, Alerts Substance Reaction Severity [...] 10/20/2109:09:00 EST, Aerosol, Route to Pharmacy Electronically, NCPDP_[id number], [facility], 162.5, cm, 10/20/20 9:49:00 EST, Height... Start Date: 10/20/20 Status: OrderedBoostrix (Tdap) intramuscular suspension 0.5 mL, Intramuscular, Once, # 5 mL, 0 Refills, Soft Stop, 07/19/21 9:13:00 EST, Suspension, [facility]-[id number], Partial fill upon patient request if the [...] mouth and throat after use label in kazakh, # 12 Gm, 11 Refills, Maintenance, 07/19/21 9:05:00 EST, Aerosol, [facility], Partial fill upon patient request if the p... Start Date: 07/19/21 Status: Orderedinfluenza virus vaccine, inactivated adjuvanted preservative-free quadrivalent intramuscular susp 0.5 mL, Intramuscular, Once, # 0.5 mL, 0 Refills, Soft Stop, 07/19/21 9:13:00 EST, Suspension, [id number], Partial fill upon patient request if the [...] and shoulder pain with food label in kazakh, # 60 tablet, 2 Refills, Maintenance, 09/27/21 15:04:00 EST, Tablet, [id number], Partial fill upon patien... Start Date: 09/27/21 Status: Orderedomeprazole 20 mg oral enteric coated capsule 1 capsule = 20 mg, By Mouth, Daily, for gastritis label in kazakh, # 30 capsule, 6 Refills, Maintenance, 07/19/21 9:09:00 EST, EC Capsule, [facility], Partial fill upon patientrequest if the prescription [...] PRN as needed for wheezing, label in kazakh, # 8.5 Gm, 11 Refills, Maintenance, 07/19/21 9:09:00 EST, Aerosol, [facility], Partial fill uponpatient request if the prescription is for a sche... Start Date: 07/19/21 Status: OrderedSenna 8.6 mg oral tablet 8.6 mg, 1, tablet, By Mouth, Daily at bedtime, for constipation with plenty of water label in kazakh, # 100 tablet, Refills 6, Tot. Refills 6, Maintenance, 07/19/21 9:09:00 EST, Route to Pharmacy Electronically, [id number],... Start Date: 07/19/21 Status: OrderedSEROquel 300 mg [...] a day, for muscle pain label in kazakh, # 90 tablet, Refills 0, Tot. Refills 0, Maintenance, 09/27/21 15:04:00 EST, Route to Pharmacy Electronically, [facility], Partial fill upon patient re... Start Date: [...] Active Asthma, moderate persistent(Confirmed) Active *Care management [facility] Mary Anne Mejia Lead Work From Home [phone](Confirmed) Polysubstance abuse (cocaine, Active opiate)(Confirmed) Varicose vein(Confirmed) Active Venous insufficiency(Confirmed) Active Social History Social History Type Response Smoking Status Never smoker entered on: 02/03/15 Sex
--- OUTSIDE RECORDS SUMMARY | 2022-07-10 03:18 | XMS_ITS | Continuity of Care Document ---
:1970 Author Organization [facility] enter/[facility] [place] Address Unavailable , Care Team Providers Name Role Phone Passer Ame BISHOP Primary Care Physician [phone] Encounter [facility] [place] Date(s): 09/10/21 - 10/10/21 [facility] Allergies, Adverse Reactions, Alerts Substance Reaction Severity Status sulfa drugs Active Immunizations Given and Recorded Vaccine Date Status Refusal Reason influenza virus vaccine, inactivated 07/19/21 Recorded tetanus/diphtheria/pertussis, acel(Tdap) 07/19/21 Recorde d SARS-CoV-2 (COVID-19) [id number] vaccine 01/11/21 Recorded Medications albuterol CFC free 90 mcg/inh inhalation aerosol 2, puffs, Inhalation, 4 times a day, PRN, # 8.5 Gm, Refills 0, Tot. Refills 0, Maintenance, 10/20/2109:09:00 EST, Aerosol, Route to Pharmacy Electronically, NCPDP_[id number], [facility], 162.5, cm, 10/20/20 9:49:00 EST, Height... Start Date: 10/20/20 Status: OrderedBoostrix (Tdap) intramuscular suspension 0.5 mL, Intramuscular, Once, # 5 mL, 0 Refills, Soft Stop, 07/19/21 9:13:00 EST, Suspension, [facility]-[address], Partial fill upon patient request if [...] mouth and throat after use label in jamaican, # 12 Gm, 11 Refills, Maintenance, 07/19/21 9:05:00 EST, Aerosol, [facility], Partial fill upon patient request if the p... Start Date: 07/19/21 Status: Orderedinfluenza virus vaccine, inactivated adjuvanted preservative-free quadrivalent intramuscular susp 0.5 mL, Intramuscular, Once, # 0.5 mL, 0 Refills, Soft Stop, 07/19/21 9:13:00 EST, Suspension, [id number], Partial fill upon patient request if the [...] and shoulder pain with food label in jamaican, # 60 tablet, 2 Refills, Maintenance, 09/27/21 15:04:00 EST, Tablet, [facility], Partial fill upon patien... Start Date: 09/27/21 Status: Orderedomeprazole 20 mg oral enteric coated capsule 1 capsule = 20 mg, By Mouth, Daily, for gastritis label in jamaican, # 30 capsule, 6 Refills, Maintenance, 07/19/21 9:09:00 EST, EC Capsule, [facility], Partial fill upon patientrequest if the [...] PRN as needed for wheezing, label in jamaican, # 8.5 Gm, 11 Refills, Maintenance, 07/19/21 9:09:00 EST, Aerosol, [facility], Partial fill uponpatient request if the prescription is for a sche... Start Date: 07/19/21 Status: OrderedSenna 8.6 mg oral tablet 8.6 mg, 1, tablet, By Mouth, Daily at bedtime, for constipation with plenty of water label in jamaican, # 100 tablet, Refills 6, Tot. Refills 6, Maintenance, 07/19/21 9:09:00 EST, Route to Pharmacy Electronically, [id number],... Start Date: 07/19/21 Status: OrderedSEROquel 300 [...] a day, for muscle pain label in jamaican, # 90 tablet, Refills 0, Tot. Refills 0, Maintenance, 09/27/21 15:04:00 EST, Route to Pharmacy Electronically, [facility], Partial fill upon patient re... 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
--- OUTSIDE RECORDS SUMMARY | 2022-07-10 03:18 | XMS_ITS | Continuity of Care Document ---
:1970 Author Organization [facility] Address Unavailable , Care Team Providers Name Role Phone Ame Santiago Primary Care Physician Encounter [facility] [place] Date(s): 11/29/21 - 01/16/22 [facility] Attending Physician: Stoney Greco Referring Physician: Ame Santiago Allergies, Adverse Reactions, Alerts Substance Reaction Severity [...] 10/20/2109:09:00 EST, Aerosol, Route to Pharmacy Electronically, NCPDP_[id number], [facility]-[address], 162.5, cm, 10/20/20 9:49:00 EST, Height... Start Date: 10/20/20 Status: OrderedBoostrix (Tdap) intramuscular suspension 0.5 mL, Intramuscular, Once, # 5 mL, 0 Refills, Soft Stop, 07/19/21 9:13:00 EST, Suspension, [facility], Partial fill upon patient request if [...] mouth and throat after use label in portuguese, # 12 Gm, 11 Refills, Maintenance, 07/19/21 9:05:00 EST, Aerosol, [facility], Partial fill upon patient request if the p... Start Date: 07/19/21 Status: Orderedinfluenza virus vaccine, inactivated adjuvanted preservative-free quadrivalent intramuscular susp 0.5 mL, Intramuscular, Once, # 0.5 mL, 0 Refills, Soft Stop, 07/19/21 9:13:00 EST, Suspension, [id number], Partial fill upon patient request if the [...] SHOULDER PAIN., # 56 tablet, 5 Refills, [facility], 162.5, cm, 11/03/21 10:17:00 EST, Height, 54.54, kg, 10/15/20 0:39:00 EST, DryWeight Start Date: 12/09/21 Status: Orderedomeprazole 20 mg oral enteric coated capsule 1 capsule = 20 mg, By Mouth, Daily, for gastritis label in portuguese, # 30 capsule, 6 Refills, Maintenance, 07/19/21 9:09:00 EST, EC Capsule, [facility], Partial fill upon patientrequest if the [...] PRN as needed for wheezing, label in portuguese, # 8.5 Gm, 11 Refills, Maintenance, 07/19/21 9:09:00 EST, Aerosol, [facility], Partial fill uponpatient request if the prescription is for a sche... Start Date: 07/19/21 Status: OrderedSenna 8.6 mg oral tablet 8.6 mg, 1, tablet, By Mouth, Daily at bedtime, for constipation with plenty of water label in portuguese, # 100 tablet, Refills 6, Tot. Refills 6, Maintenance, 07/19/21 9:09:00 EST, Route to Pharmacy Electronically, [id number],... 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
--- OUTSIDE RECORDS SUMMARY | 2022-07-10 03:18 | XMS_ITS | Continuity of Care Document ---
:1970 Author Organization [facility] enter/[facility] Address Unavailable , Care Team Providers Name Role Phone Passer Ame BISHOP Primary Care Physician Encounter [facility] [id number] Date(s): 10/15/21 - 11/14/21 [facility] Attending Physician: Nani Alonso Admitting Physician: Nani Alonso Referring Physician: AdmtrNani Allergies, Adverse Reactions, Alerts Substance Reaction Severity [...] 10/20/2109:09:00 EST, Aerosol, Route to Pharmacy Electronically, NCPDP_[id number], [facility]-[address], 162.5, cm, 10/20/20 9:49:00 EST, Height... Start Date: 10/20/20 Status: OrderedBoostrix (Tdap) intramuscular suspension 0.5 mL, Intramuscular, Once, # 5 mL, 0 Refills, Soft Stop, 07/19/21 9:13:00 EST, Suspension, [facility], Partial fill upon patient request if the [...] mouth and throat after use label in pitcair[place] islander, # 12 Gm, 11 Refills, Maintenance, 07/19/21 9:05:00 EST, Aerosol, [facility], Partial fill upon patient request if the p... Start Date: 07/19/21 Status: Orderedinfluenza virus vaccine, inactivated adjuvanted preservative-free quadrivalent intramuscular susp 0.5 mL, Intramuscular, Once, # 0.5 mL, 0 Refills, Soft Stop, 07/19/21 9:13:00 EST, Suspension, [id number], Partial fill upon patient request if the [...] and shoulder pain with food label in pitc[place] islander, # 60 tablet, 2 Refills, Maintenance, 09/27/21 15:04:00 EST, Tablet, [facility], Partial fill upon patien... Start Date: 09/27/21 Status: Orderedomeprazole 20 mg oral enteric coated capsule 1 capsule = 20 mg, By Mouth, Daily, for gastritis label in pitc[place] islander, # 30 capsule, 6 Refills, Maintenance, 07/19/21 9:09:00 EST, EC Capsule, [facility], Partial fill upon patientrequest if the prescription [...] PRN as needed for wheezing, label in [place] islander, # 8.5 Gm, 11 Refills, Maintenance, 07/19/21 9:09:00 EST, Aerosol, [facility], Partial fill uponpatient request if the prescription is for a sche... Start Date: 07/19/21 Status: OrderedSenna 8.6 mg oral tablet 8.6 mg, 1, tablet, By Mouth, Daily at bedtime, for constipation with plenty of water label in pitc[place] islander, # 100 tablet, Refills 6, Tot. Refills 6, Maintenance, 07/19/21 9:09:00 EST, Route to Pharmacy Electronically, [id number],... Start Date: 07/19/21 Status: OrderedSEROquel 300 mg [...] a day, for muscle pain label in pitcair[place] islander, # 90 tablet, Refills 0, Tot. Refills 0, Maintenance, 09/27/21 15:04:00 EST, Route to Pharmacy Electronically, [facility], Partial fill upon patient re... Start Date: [...] Active Asthma, moderate persistent(Confirmed) Active *Care management [facility] Mary Anne Mejia Lead Ergonomist [phone](Confirmed) Polysubstance abuse (cocaine, Active opiate)(Confirmed) Varicose vein(Confirmed) Active Venous insufficiency(Confirmed) Active Social History Social History Type Response Smoking Status Never smoker entered on: 02/03/15 Sex
--- OUTSIDE RECORDS SUMMARY | 2022-07-10 03:18 | XMS_ITS | Continuity of Care Document ---
:1970 Author Organization [facility] enter/[facility] Address Unavailable , Care Team Providers Name Role Phone Ame Santiago Primary Care Physician [place] [facility] [place]14[place]21 [facility] Attending Physician: Sasha Massey MD Admitting Physician: Sasha Massey MD Referring Physician: Ame Santiago Allergies, Adverse Reactions, Alerts Substance Reaction Severity Status sulfa drugs Active Immunizations Given and Recorded Vaccine Date Status Refusal Reason influenza virus vaccine, inactivated 07/19/21 Recorded tetanus/diphtheria/pertussis, acel(Tdap) 07/19/21 Recorde d SARS-CoV-2 (COVID-19) mRNA-1276 vaccine 01/11/21 Recorded Medications albuterol CFC free 90 mcg/inh inhalation aerosol 2, puffs, Inhalation, 4 times a day, PRN, # 8.5 Gm, Refills 0, Tot. Refills 0, Maintenance, 10/20/2109:09:00 EST, Aerosol, Route to Pharmacy Electronically, NCPDP_[id number], [id number], 162.5, cm, 10/20/20 9:49:00 EST, Height... Start Date: 10/20/20 Status: OrderedBoostrix (Tdap) intramuscular suspension 0.5 mL, Intramuscular, Once, # 5 mL, 0 Refills, Soft Stop, 07/19/21 9:13:00 EST, Suspension, [id number], Partial fill upon patient request if [...] mouth and throat after use label in bruneian, # 12 Gm, 11 Refills, Maintenance, 07/19/21 9:05:00 EST, Aerosol, [facility], Partial fill upon patient request if the p... Start Date: 07/19/21 Status: Orderedinfluenza virus vaccine, inactivated adjuvanted preservative-free quadrivalent intramuscular susp 0.5 mL, Intramuscular, Once, # 0.5 mL, 0 Refills, Soft Stop, 07/19/21 9:13:00 EST, Suspension, [id number], Partial fill upon patient request if the [...] and shoulder pain with food label in bruneian, # 60 tablet, 2 Refills, Maintenance, 09/27/21 15:04:00 EST, Tablet, [id number], Partial fill upon patien... Start Date: 09/27/21 Status: Orderedomeprazole 20 mg oral enteric coated capsule 1 capsule = 20 mg, By Mouth, Daily, for gastritis label in bruneian, # 30 capsule, 6 Refills, Maintenance, 07/19/21 9:09:00 EST, EC Capsule, [id number], Partial fill upon patientrequest if the [...] PRN as needed for wheezing, label in bruneian, # 8.5 Gm, 11 Refills, Maintenance, 07/19/21 9:09:00 EST, Aerosol, [facility], Partial fill uponpatient request if the prescription is for a sche... Start Date: 07/19/21 Status: OrderedSenna 8.6 mg oral tablet 8.6 mg, 1, tablet, By Mouth, Daily at bedtime, for constipation with plenty of water label in bruneian, # 100 tablet, Refills 6, Tot. Refills 6, Maintenance, 07/19/21 9:09:00 EST, Route to Pharmacy Electronically, [id number],... Start Date: 07/19/21 Status: OrderedSEROquel 300 [...] a day, for muscle pain label in bruneian, # 90 tablet, Refills 0, Tot. Refills 0, Maintenance, 09/27/21 15:04:00 EST, Route to Pharmacy Electronically, [facility], Partial fill upon patient re... 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
--- OUTSIDE RECORDS SUMMARY | 2022-07-10 03:18 | XMS_ITS | Continuity of Care Document ---
:1970 Author Organization [facility] Address Unavailable , Care Team Providers Name Role Phone Ame Santiago Primary Care Physician [place] [facility] [place]21 [facility] Encounter Diagnosis Mass on back (Discharge Diagnosis) - 11/03/21 Attending Physician: Stoney Greco Referring Physician: Ame [...] 10/20/2109:09:00 EST, Aerosol, Route to Pharmacy Electronically, NCPDP_[id number], [id number], 162.5, cm, 10/20/20 9:49:00 EST, Height... Start Date: 10/20/20 Status: OrderedBoostrix (Tdap) intramuscular suspension 0.5 mL, Intramuscular, Once, # 5 mL, 0 Refills, Soft Stop, 07/19/21 9:13:00 EST, Suspension, [id number], Partial fill upon patient request if [...] mouth and throat after use label in latvian, # 12 Gm, 11 Refills, Maintenance, 07/19/21 9:05:00 EST, Aerosol, [facility], Partial fill upon patient request if the p... Start Date: 07/19/21 Status: Orderedinfluenza virus vaccine, inactivated adjuvanted preservative-free quadrivalent intramuscular susp 0.5 mL, Intramuscular, Once, # 0.5 mL, 0 Refills, Soft Stop, 07/19/21 9:13:00 EST, Suspension, [id number], Partial fill upon patient request if the [...] and shoulder pain with food label in latvian, # 60 tablet, 2 Refills, Maintenance, 09/27/21 15:04:00 EST, Tablet, [facility], Partial fill upon patien... Start Date: 09/27/21 Status: Orderedomeprazole 20 mg oral enteric coated capsule 1 capsule = 20 mg, By Mouth, Daily, for gastritis label in latvian, # 30 capsule, 6 Refills, Maintenance, 07/19/21 9:09:00 EST, EC Capsule, [facility], Partial fill upon patientrequest if the [...] PRN as needed for wheezing, label in latvian, # 8.5 Gm, 11 Refills, Maintenance, 07/19/21 9:09:00 EST, Aerosol, [facility], Partial fill uponpatient request if the prescription is for a sche... Start Date: 07/19/21 Status: OrderedSenna 8.6 mg oral tablet 8.6 mg, 1, tablet, By Mouth, Daily at bedtime, for constipation with plenty of water label in latvian, # 100 tablet, Refills 6, Tot. Refills 6, Maintenance, 07/19/21 9:09:00 EST, Route to Pharmacy Electronically, [id number],... Start Date: 07/19/21 Status: OrderedSEROquel 300 [...] a day, for muscle pain label in latvian, # 90 tablet, Refills 0, Tot. Refills 0, Maintenance, 09/27/21 15:04:00 EST, Route to Pharmacy Electronically, [id number], Partial fill upon patient re... Start [...] Active Asthma, moderate persistent(Confirmed) Active *Care management [facility] Mary Anne Mejia Lead Maintenance Team Member [phone](Confirmed) Polysubstance abuse (cocaine, Active opiate)(Confirmed) Varicose vein(Confirmed) Active Venous insufficiency(Confirmed) Active Diagnosis Diagnosis Type Effective Dates Health Status Clinical In [facility] Service [facility] on back Discharge 11/03/21 Diagnosis Vital Signs Most recent to oldest [Reference Range]: 1 Height 162.5 cm (11/03/21 10:17 AM) Weight 61.0 kg (11/03/21 10:17 AM) Pulse Rate [55-90 bpm] 53 bpm *L* (11/03/21 10:17 AM) Body Mass Index [18.5-24.99] 23.1 (11/03/21 10:17 AM) Blood Pressure [90-138/55-84 mm Hg] 103/64 mm Hg (11/03/21 10:17 AM) Temperature [96.8-100.4 DegF] 97.8 DegF (11/03/21 10:17 AM) Blood pressure sites Arm, left (11/03/21 10:17 AM) Temperature Route Temporal (11/03/21 10:17 AM) Weight Obtained Via Standing scale (11/03/21 10:17 AM) Social History Social History Type Response Smoking Status Never smoker entered on: 02/03/15 Sex
--- OUTSIDE RECORDS SUMMARY | 2022-07-10 03:18 | XMS_ITS | Continuity of Care Document ---
:1970 Author Organization [address] [place] [address]- Care Team Providers Name Role Phone Ame Santiago Primary Care Physician [phone] [place] [facility] [place] 06/28/22 - 07/05/[address] [place] [address]- Attending Physician: Stoney Greco Referring Physician: Ame Santiago Allergies, Adverse Reactions, Alerts Substance Reaction Severity Status sulfa drugs Active Immunizations Given and Recorded Vaccine Date Status Refusal Reason influenza virus vaccine, inactivated 07/19/21 Recorded tetanus/diphtheria/pertussis, acel(Tdap) 07/19/21 Recorde d SARS-CoV-2 (COVID-19) mRNA-1273 vaccine 01/11/21 Recorded Medications 18 inch shower bar 18 inch shower bar, See Instructions, # 2 each, Refills 0, Tot. Refills 0, Maintenance, Dx: Chronic low back pain, Fall risk, 05/06/22 12:13:00 EDT, Supply Start Date: 05/06/22 Status: Orderedalbuterol 0.083% inhalation solution 3 mL = 2.5 mg, Inhalation, Every 6 hours, For use with nebulizer, # 120 each, 3 Refills, Maintenance, 05/06/22 12:20:00 EDT, Solution, [id number], Partial fill upon patient request if the prescription is for a schedule II opioid drug., 162.5,... Start Date: 05/06/22 Status: Orderedalbuterol CFC free 90 mcg/inh inhalation aerosol 2, puffs, Inhalation, 4 times a day, PRN, # 8.5 Gm, Refills 0, Tot. Refills 0, Maintenance, 10/20/2109:09:00 EST, Aerosol, Route to Pharmacy Electronically, NCPDP_[id number], [facility], 162.5, cm, 10/20/20 9:49:00 EST, Height... Start Date: 10/20/20 Status: OrderedBoostrix (Tdap) intramuscular suspension 0.5 mL, Intramuscular, Once, # 5 mL, 0 Refills, Soft Stop, 07/19/21 9:13:00 EST, Suspension, [id number], Partial fill upon patient request if the prescription is for a schedule II opioid drug., 0.5 mL Intramuscular Once, 162.5,... Start Date: 07/19/21 Status: OrderedcloNIDine 0.1 mg oral tablet 1, tablet, By Mouth, 2 times a day, FOR ANXIETY., # 60 tablet, Refills 1, Maintenance, 06/30/22 16:09:00 EDT, Route to Pharmacy Electronically, [id number], 162.5, cm, 06/28/22 13:32:00 EDT, Height, 54.54, kg, 10/15/20 0:39:00 EST, Dry Weight Start Date: 06/30/22 Status: OrderedFlovent HFA 110 mcg/inh inhalation aerosol 2 puffs, Inhalation, 2 times a day, for asthma control rinse mouth and throat after use label in tajik, # 12 Gm, 11 Refills, Maintenance, 05/06/22 12:19:00 EDT, Aerosol, [facility][id number], Partial fill upon patient request if the prescription is... Start Date: 05/06/22 Status: Orderedfolding rolling walker with seat folding rolling walker with seat, See Instructions, # 1 each, Refills 0, Tot. Refills 0, Maintenance, Dx: Chronic low back pain, Fall risk, 05/06/22 12:13:00 EDT, Supply Start Date: 05/06/22 Status: OrderedHand Held Shower Head Hand Held Shower Head, See Instructions, # 1 each, Refills 0, Tot. Refills 0, Maintenance, Dx: Chronic low back pain, Fall risk, 05/06/22 12:13:00 EDT, Supply Start Date: 05/06/22 Status: Orderedinfluenza virus vaccine, inactivated adjuvanted preservative-free quadrivalent intramuscular susp 0.5 mL, Intramuscular, Once, # 0.5 mL, 0 Refills, Soft Stop, 07/19/21 9:13:00 EST, Suspension, [id number], Partial fill upon patient request if the [...] BACK AND SHOULDER PAIN., # 56 tablet, 1 Refills, Maintenance, 06/23/22 14:54:00 EDT, [facility], 162.5, cm, 05/06/22 11:38:00 EDT, Height, 54.54, kg, 10/15/20 0:39:00 EST, Dry Weight Start Date: 06/23/22 Status: OrderedNebulizer with tubing and mask Nebulizer with tubing and mask, See Instructions, # 1 each, Refills 0, Tot. Refills 0, Maintenance, Dx: Moderate persistent asthma Use with Albuterol, 05/06/22 12:19:00 EDT, Supply, 162.5, cm, 05/06/2211:38:00 EDT, Height, 54.54, kg, 10/15/20 0:39:0... Start Date: 05/06/22 Status: Orderedomeprazole 20 mg oral enteric coated capsule 1 capsule, By Mouth, Daily, # 28 capsule, 0 Refills, Maintenance, 04/29/22 13:03:00 EDT, [facility], 162.5, cm, 03/07/22 14:19:00 EDT, Height, 54.54, kg, 10/15/20 0:39:00 EST, Dry Weight Start Date: 04/29/22 Status: Orderedomeprazole 20 mg oral enteric coated capsule See Instructions, TAKE 1 CAPSULE BY MOUTH DAILY, # 28 capsule, 6 Refills, Maintenance, 05/30/22 10:38:00 EDT, [facility]-, 162.5, cm, 05/06/22 11:38:00 EDT, Height, 54.54, kg, 10/15/20 0:39:00 EST, Dry Weight Start Date: 05/30/22 Status: Orderedprazosin 1 mg oral capsule 1 mg, 1, capsule, By Mouth, 3 times a day, Refills 0, Maintenance, 07/19/21 8:37:00 EST, Partial fill upon patient request if the prescription is for a schedule II opioid drug. Start Date: 07/19/21 Status: OrderedProAir HFA 90 mcg/inh inhalation aerosol 2 puffs, Inhalation, Every 4 hours, PRN as needed for wheezing, label in tajik, # 8.5 Gm, 11 Refills, Maintenance, 05/06/22 12:19:00 EDT, Aerosol, [facility]/pharmacy #[id number], Partial fill upon patient request if the prescription is for a schedule II opioid... Start Date: 05/06/22 Status: OrderedSenna 8.6 mg oral tablet 8.6 mg, 1, tablet, By Mouth, Daily at bedtime, for constipation with plenty of water label in tajik, # 100 tablet, Refills 6, Tot. Refills 6, Maintenance, 07/19/21 9:09:00 EST, Route to Pharmacy Electronically, [id number],... Start Date: 07/19/21 Status: OrderedSEROquel 300 mg oral tablet 1 tablet = 300 mg, By Mouth, 2 times a day, 0 Refills, Maintenance, 07/19/21 8:38:00 EST, Partial fill upon patient request if the prescription is for a schedule II opioid drug. Start Date: 07/19/21 Status: OrderedtiZANidine 2 mg oral tablet 1, tablet, By Mouth, 3 times a day, FOR MUSCLE PAIN., # 84 tablet, Refills 0, Maintenance, 04/29/22 13:03:00 EDT, Route to Pharmacy Electronically, [facility]-, 162.5, cm, 03/07/22 14:19:00 EDT, Height, 54.54, kg, 10/15/20 0:39:00 EST, Dry... Start Date: 04/29/22 Status: OrderedtiZANidine 2 mg oral tablet See Instructions, TAKE 1 TABLET BY MOUTH THREE TIMES A DAY FOR MUSCLE PAIN, # 84 tablet, Refills 1, Tot. Refills 1, Maintenance, 05/30/22 10:38:00 EDT, Instructions Replace Required Details, Route to Pharmacy Electronically, [id number], 16... 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 [phone] Polysubstance abuse Confirmed Active (cocaine, opiate) Varicose vein Confirmed Active Venous insufficiency Confirmed Active Vital Signs Most recent to oldest [Reference Range]: 1 Height 162.5 cm (06/28/22 1:32 PM) Weight 69.3 kg (06/28/22 1:32 PM) Pulse Rate [55-90 bpm] 65 bpm (06/28/22 1:32 PM) Body Mass Index [18.5-24.99 kg/m2] 26.24 kg/m2 *H* (06/28/22 1:32 PM) Blood Pressure [90-138/55-84 mm Hg] 134/85 mm Hg (06/28/22 1:32 PM) Temperature [96.8-100.4 DegF] 97.2 DegF (06/28/22 1:32 PM) Blood pressure sites Arm, left (06/28/22 1:32 PM) Temperature Route Temporal (06/28/22 1:32 PM) Weight Obtained Via Standing scale (06/28/22 1:32 PM) Social History Social History Type Response Smoking Status Never smoker entered on: 02/03/15 Sex Patient Care team information Care Team PersonnelName: Magdalena Llanos RN Position: S RN Member Role: Primary Care Nurse Name: Jennie Avila RN Position: S RN Supv Member Role: Primary Care Nurse Name: Ame Santiago Position: [facility]O Associate Professional Member Role: PCP Address: Address: [address] [place] [address]- Care Team Related PersonsName: USHA DUMONT Name: DEBI VAUGHN Address: home [address] [place] [address] Name: TAMARA EARLY Name: DEBI JORGENSEN Address: home [address] [place] [id number]
--- OUTSIDE RECORDS SUMMARY | 2022-07-10 03:18 | XMS_ITS | Continuity of Care Document ---
:1970 Author Organization [facility] Address Unavailable , Care Team Providers Name Role Phone Ame Santiago Primary Care Physician [phone] [place] [facility] [place] Date(s): 12/21/21 - 01/23/22 [facility] Attending Physician: Stoney Greco Referring Physician: Ame [...] 10/20/2109:09:00 EST, Aerosol, Route to Pharmacy Electronically, NCPDP_[id number], [id number], 162.5, cm, 10/20/20 9:49:00 EST, Height... Start Date: 10/20/20 Status: OrderedBoostrix (Tdap) intramuscular suspension 0.5 mL, Intramuscular, Once, # 5 mL, 0 Refills, Soft Stop, 07/19/21 9:13:00 EST, Suspension, [id number], Partial fill upon patient request if [...] mouth and throat after use label in nepali, # 12 Gm, 11 Refills, Maintenance, 07/19/21 9:05:00 EST, Aerosol, [id number], Partial fill upon patient request if the p... Start Date: 07/19/21 Status: Orderedinfluenza virus vaccine, inactivated adjuvanted preservative-free quadrivalent intramuscular susp 0.5 mL, Intramuscular, Once, # 0.5 mL, 0 Refills, Soft Stop, 07/19/21 9:13:00 EST, Suspension, [id number], Partial fill upon patient request if the [...] SHOULDER PAIN., # 56 tablet, 5 Refills, [facility], 162.5, cm, 11/03/21 10:17:00 EST, Height, 54.54, kg, 10/15/20 0:39:00 EST, DryWeight Start Date: 12/09/21 Status: Orderedomeprazole 20 mg oral enteric coated capsule 1 capsule = 20 mg, By Mouth, Daily, for gastritis label in nepali, # 30 capsule, 6 Refills, Maintenance, 07/19/21 9:09:00 EST, EC Capsule, [facility], Partial fill upon patientrequest if the [...] PRN as needed for wheezing, label in nepali, # 8.5 Gm, 11 Refills, Maintenance, 07/19/21 9:09:00 EST, Aerosol, [id number], Partial fill uponpatient request if the prescription is for a sche... Start Date: 07/19/21 Status: OrderedSenna 8.6 mg oral tablet 8.6 mg, 1, tablet, By Mouth, Daily at bedtime, for constipation with plenty of water label in nepali, # 100 tablet, Refills 6, Tot. Refills 6, Maintenance, 07/19/21 9:09:00 EST, Route to Pharmacy Electronically, [id number],... 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
--- OUTSIDE RECORDS SUMMARY | 2022-07-10 03:18 | XMS_ITS | Continuity of Care Document ---
:1970 Author Organization [facility] enter/[facility] Address Unavailable , Care Team Providers Name Role Phone Passer Ame BISHOP Primary Care Physician En[place] [facility] [place] Date(s): 07/19/21 - 08/18/21 [facility] Attending Physician: Nani Alonso Admitting Physician: Nani Alonso Referring Physician: Nani Alonso Allergies, Adverse Reactions, Alerts Substance Reaction Severity Status sulfa drugs Active Immunizations Given and Recorded Vaccine Date Status Refusal Reason SARS-CoV-2 (COVID-19) [id number] vaccine 01/11/21 Recorded Medications albuterol CFC free 90 mcg/inh inhalation aerosol 2, puffs, Inhalation, 4 times a day, PRN, # 8.5 Gm, Refills 0, Tot. Refills 0, Maintenance, 10/20/2109:09:00 EST, Aerosol, Route to Pharmacy Electronically, NCPDP_[id number], [facility]-[id number], 162.5, cm, 10/20/20 9:49:00 EST, Height... Start Date: 10/20/20 Status: OrderedBoostrix (Tdap) intramuscular suspension 0.5 mL, Intramuscular, Once, # 5 mL, 0 Refills, Soft Stop, 07/19/21 9:13:00 EST, Suspension, [id number], Partial fill upon patient request if the [...] mouth and throat after use label in nicaraguan, # 12 Gm, 11 Refills, Maintenance, 07/19/21 9:05:00 EST, Aerosol, [id number], Partial fill upon patient request if the p... Start Date: 07/19/21 Status: Orderedinfluenza virus vaccine, inactivated adjuvanted preservative-free quadrivalent intramuscular susp 0.5 mL, Intramuscular, Once, # 0.5 mL, 0 Refills, Soft Stop, 07/19/21 9:13:00 EST, Suspension, [id number], Partial fill upon patient request if the prescription is for a schedule II opioid drug., 0.5 mL Intramuscular Once, 162.... Start Date: 07/19/21 Status: OrderedMethadone = 70 mg, By Mouth, Daily, 0 Refills, Maintenance, 10/15/20 2:11:00 EST, Partial fill upon patient request if the prescription is for a schedule II opioid drug. Start Date: 10/15/20 Status: Orderednaproxen 500 mg oral tablet 1 tablet = 500 mg, By Mouth, 2 times a day, with food for headache or joint pains label in nicaraguan, # 60 tablet, 3 Refills, Maintenance, 07/19/21 9:10:00 EST, Tablet, [id number], Partial fill upon patient request if the presc... Start Date: 07/19/21 Status: Orderedomeprazole 20 mg oral enteric coated capsule 1 capsule = 20 mg, By Mouth, Daily, for gastritis label in nicaraguan, # 30 capsule, 6 Refills, Maintenance, 07/19/21 9:09:00 EST, EC Capsule, [id number], Partial fill upon patientrequest if the prescription [...] PRN as needed for wheezing, label in nicaraguan, # 8.5 Gm, 11 Refills, Maintenance, 07/19/21 9:09:00 EST, Aerosol, [id number], Partial fill uponpatient request if the prescription is for a sche... Start Date: 07/19/21 Status: OrderedSenna 8.6 mg oral tablet 8.6 mg, 1, tablet, By Mouth, Daily at bedtime, for constipation with plenty of water label in nicaraguan, # 100 tablet, Refills 6, Tot. Refills 6, Maintenance, 07/19/21 9:09:00 EST, Route to Pharmacy Electronically, [id number],... Start Date: 07/19/21 Status: OrderedSEROquel 300 mg oral tablet 1 tablet = 300 mg, By Mouth, 2 times a day, 0 Refills, Maintenance, 07/19/21 8:38:00 EST, Partial fill upon patient request if the prescription is for a schedule II opioid drug. Start Date: 07/19/21 Status: OrderedTrileptal 150 mg oral tablet 150 [...] back pain(Confirmed) Active Asthma, moderate persistent(Confirmed) Active Polysubstance abuse (cocaine, Active opiate)(Confirmed) Varicose vein(Confirmed) Active Venous insufficiency(Confirmed) Active Social History Social History Type Response Smoking Status Never smoker entered on: 02/03/15 Sex
--- OUTSIDE RECORDS SUMMARY | 2022-07-10 03:18 | XMS_ITS | Continuity of Care Document ---
:1970 Author Organization [facility] Address Unavailable , Care Team Providers Name Role Phone Passer Ame BISHOP Primary Care Physician [place] [facility] [place]/22 [facility] Attending Physician: Nani Alonso Admitting Physician: AdmtrNani Referring Physician: AdmtrNani Allergies, Adverse Reactions, Alerts [...] 10/20/2109:09:00 EST, Aerosol, Route to Pharmacy Electronically, NCPDP_[id number], [facility], 162.5, cm, 10/20/20 9:49:00 EST, Height... Start Date: 10/20/20 Status: OrderedBoostrix (Tdap) intramuscular suspension 0.5 mL, Intramuscular, Once, # 5 mL, 0 Refills, Soft Stop, 07/19/21 9:13:00 EST, Suspension, [facility], Partial fill upon patient request if [...] 11 Refills, Maintenance, 07/19/21 9:05:00 EST, Aerosol, [facility], Partial fill upon patient request if the p... Start Date: 07/19/21 Status: Orderedinfluenza virus vaccine, inactivated adjuvanted preservative-free quadrivalent intramuscular susp 0.5 mL, Intramuscular, Once, # 0.5 mL, 0 Refills, Soft Stop, 07/19/21 9:13:00 EST, Suspension, [id number], Partial fill upon patient request if the [...] SHOULDER PAIN., # 56 tablet, 5 Refills, [facility]-, 162.5, cm, 11/03/21 10:17:00 EST, Height, 54.54, kg, 10/15/20 0:39:00 EST, DryWeight Start Date: 12/09/21 Status: Orderedomeprazole 20 mg oral enteric coated capsule 1 capsule = 20 mg, By Mouth, Daily, for gastritis label in portuguese, # 30 capsule, 6 Refills, Maintenance, 07/19/21 9:09:00 EST, EC Capsule, [facility], Partial fill upon patientrequest if the [...] 11 Refills, Maintenance, 07/19/21 9:09:00 EST, Aerosol, [facility], Partial fill uponpatient request if the prescription is for a sche... Start Date: 07/19/21 Status: OrderedSenna 8.6 mg oral tablet 8.6 mg, 1, tablet, By Mouth, Daily at bedtime, for constipation with plenty of water label in portuguese, # 100 tablet, Refills 6, Tot. Refills 6, Maintenance, 07/19/21 9:09:00 EST, Route to Pharmacy Electronically, [facility],... 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
--- OUTSIDE RECORDS SUMMARY | 2022-07-10 03:18 | XMS_ITS | Continuity of Care Document ---
:1970 Author Organization [facility] Address [address] [place] [address]- Care Team Providers Name Role Phone Not on Staff, PCP Primary Care Physician Unavailable Encounter [facility] [place] ACCT R [id number] Date(s): 07/16/20 - 09/16/20 [facility] [address], [place] [address] Attending Physician: Ame Santiago Allergies, Adverse Reactions, Alerts Substance Reaction Severity Status sulfa drugs Active Medications Abilify 5 mg oral tablet 5 mg, 1, tablet, By Mouth, Daily, # 30 tablet, Refills 0, Tot. Refills 0, Maintenance, 06/07/19 11:51:28 EDT, Route to Pharmacy Electronically, [id number], [place], [place] - Start Date: 06/07/19 Status: Orderedalbuterol CFC free 90 mcg/inh inhalation aerosol 2, puffs, Inhalation, 4 times a day, PRN, # 8.5 Gm, Refills 0, Tot. Refills 0, Maintenance, 06/07/1911:50:55 EDT, Aerosol, Route to Pharmacy Electronically, [id number], [place], [place] - Start Date: 06/07/19 Status: OrderedcloNIDine 0.1 mg oral tablet 0.1 mg, 1, tablet, By Mouth, 3 times a day, # 21 tablet, Refills 0, Tot. Refills 0, Maintenance, 06/07/19 11:51:19 EDT, Route to Pharmacy Electronically, [id number], [place], [place] - Start Date: 06/07/19 Stop Date: 06/14/19 Status: Ordereddicyclomine 10 mg oral capsule 1 capsule = 10 mg, By Mouth, 4 times a day, PRN Other Irritable Bowel Symptoms, # 28 capsule, 0 Refills, Maintenance, 06/07/19 11:51:35 EDT, Capsule Start Date: 06/07/19 Stop Date: 06/14/19 Status: Orderedibuprofen 600 mg oral tablet 600 mg, 1, tablet, By Mouth, 3 times a day, PRN, # 120 tablet, Refills 0, Maintenance, pain, 01/17/18 14:37:49 EDT Start Date: 01/17/18 Status: Orderedmirtazapine 15 mg oral tablet 1 tablet = 15 mg, By Mouth, Daily at bedtime, # 30 tablet, 3 Refills, Maintenance, 06/07/19 11:51:24EDT, Tablet Start Date: 06/07/19 Status: Ordered Problem List Condition Effective Dates Status Health Status Informant Low back pain(Confirmed) Active Polysubstance abuse (cocaine, Active opiate)(Confirmed) Varicose vein(Confirmed) Active Venous insufficiency(Confirmed) Active Social History Social History Type Response Smoking Status Never smoker entered on: 02/03/15 Sex
--- OUTSIDE RECORDS SUMMARY | 2022-07-10 03:18 | XMS_ITS | Continuity of Care Document ---
:1970 Author Organization [facility] Address Unavailable , Care Team Providers Name Role Phone Ame Santiago Primary Care Physician [phone] [place] [facility] [place](s): 07/19/21 - 07/26/21 [facility] Attending Physician: Ame Santiago Allergies, Adverse Reactions, Alerts Substance Reaction Severity Status sulfa drugs Active Immunizations Given and Recorded Vaccine Date Status Refusal Reason SARS-CoV-2 (COVID-19) mRNA-4724 vaccine 01/11/21 Recorded Medications albuterol CFC free 90 mcg/inh inhalation aerosol 2, puffs, Inhalation, 4 times a day, PRN, # 8.5 Gm, Refills 0, Tot. Refills 0, Maintenance, 10/20/2109:09:00 EST, Aerosol, Route to Pharmacy Electronically, NCPDP_[id number], [facility], 162.5, cm, 10/20/20 9:49:00 EST, Height... Start Date: 10/20/20 Status: OrderedBoostrix (Tdap) intramuscular suspension 0.5 mL, Intramuscular, Once, # 5 mL, 0 Refills, Soft Stop, 07/19/21 9:13:00 EST, Suspension, [facility], Partial fill upon patient request if [...] mouth and throat after use label in mauritanian, # 12 Gm, 11 Refills, Maintenance, 07/19/21 9:05:00 EST, Aerosol, [facility], Partial fill upon patient request if the p... Start Date: 07/19/21 Status: Orderedinfluenza virus vaccine, inactivated adjuvanted preservative-free quadrivalent intramuscular susp 0.5 mL, Intramuscular, Once, # 0.5 mL, 0 Refills, Soft Stop, 07/19/21 9:13:00 EST, Suspension, [id number], Partial fill upon patient request if the [...] for headache or joint pains label in mauritanian, # 60 tablet, 3 Refills, Maintenance, 07/19/21 9:10:00 EST, Tablet, [facility], Partial fill upon patient request if the presc... Start Date: 07/19/21 Status: Orderedomeprazole 20 mg oral enteric coated capsule 1 capsule = 20 mg, By Mouth, Daily, for gastritis label in mauritanian, # 30 capsule, 6 Refills, Maintenance, 07/19/21 9:09:00 EST, EC Capsule, [facility], Partial fill upon patientrequest if the [...] PRN as needed for wheezing, label in mauritanian, # 8.5 Gm, 11 Refills, Maintenance, 07/19/21 9:09:00 EST, Aerosol, [facility], Partial fill uponpatient request if the prescription is for a sche... Start Date: 07/19/21 Status: OrderedSenna 8.6 mg oral tablet 8.6 mg, 1, tablet, By Mouth, Daily at bedtime, for constipation with plenty of water label in mauritanian, # 100 tablet, Refills 6, Tot. Refills 6, Maintenance, 07/19/21 9:09:00 EST, Route to Pharmacy Electronically, [facility],... Start Date: 07/19/21 Status: OrderedSEROquel 300 [...] opiate)(Confirmed) Varicose vein(Confirmed) Active Venous insufficiency(Confirmed) Active Procedures Procedure Date Related Diagnosis Body Site Status Breast reduction Completed Cholecystectomy Completed Hernia repair Completed Vital Signs Most recent to oldest [Reference Range]: 1 Height 162.5 cm (07/19/21 8:32 AM) Weight 59.54 kg (07/19/21 8:32 AM) Oxygen Saturation [94-100 %] 98 % (07/19/21 8:32 AM) Pulse Rate [55-90 bpm] 82 bpm (07/19/21 8:32 AM) Body Mass Index [18.5-24.99] 22.55 (07/19/21 8:32 AM) Blood Pressure [90-138/55-84 mm Hg] 112/66 mm Hg (07/19/21 8:32 AM) Respiratory Rate [16-30 br/min] 16 br/min (07/19/21 8:32 AM) Temperature [96.8-100.4 DegF] 98.4 DegF (07/19/21 8:32 AM) Mode of Delivery (Oxygen) Room air (07/19/21 8:32 AM) Blood pressure sites Arm, left (07/19/21 8:32 AM) Temperature Route Oral (07/19/21 8:32 AM) Weight Obtained Via Standing scale (07/19/21 8:32 AM) Social History Social History Type Response Smoking Status Never smoker entered on: 02/03/15 Sex
--- OUTSIDE RECORDS SUMMARY | 2022-07-10 03:18 | XMS_ITS | Continuity of Care Document ---
:1970 Author Organization [facility] Address [address] [place] [address]- Care Team Providers Name Role Phone Ame Santiago Primary Care Physician [phone] Encounter [facility] [place] Date(s): 05/06/22 - 06/23/[address] [id number] Attending Physician: Ame Santiago Admitting Physician: Ame Santiago Referring Physician: Ame Santiago Allergies, Adverse Reactions, [...] Refills, Maintenance, 05/06/22 12:20:00 EDT, Solution, [id number], Partial fill upon patient request if the prescription is for a schedule II opioid drug., 162.5,... Start Date: 05/06/22 Status: Orderedalbuterol CFC free 90 mcg/inh inhalation aerosol 2, puffs, Inhalation, 4 times a day, PRN, # 8.5 Gm, Refills 0, Tot. Refills 0, Maintenance, 10/20/2109:09:00 EST, Aerosol, Route to Pharmacy Electronically, NCPDP_[id number], [facility], 162.5, cm, 10/20/20 9:49:00 EST, Height... Start Date: 10/20/20 Status: OrderedBoostrix (Tdap) intramuscular suspension 0.5 mL, Intramuscular, Once, # 5 mL, 0 Refills, Soft Stop, 07/19/21 9:13:00 EST, Suspension, [facility], Partial fill upon patient request if the prescription is for a schedule II opioid drug., 0.5 mL Intramuscular Once, 162.5,... Start Date: 07/19/21 Status: OrderedcloNIDine 0.1 mg oral tablet 0.1 mg, 1, tablet, By Mouth, 2 times a day, for anxiety label in togolese covering for Psychiatrist, # 60 tablet, Refills 1, Tot. Refills 1, Maintenance, 05/06/22 12:19:00 EDT, Route to Pharmacy Electronically, [facility]/pharmacy #[id number], Partial fill upon p... Start Date: 05/06/22 Status: OrderedFlovent HFA 110 mcg/inh inhalation aerosol 2 puffs, Inhalation, 2 times a day, for asthma control rinse mouth and throat after use label in togolese, # 12 Gm, 11 Refills, Maintenance, 05/06/22 12:19:00 EDT, Aerosol, [facility]/pharmacy #[id number], Partial fill upon patient request if [...] Refills, Soft Stop, 07/19/21 9:13:00 EST, Suspension, [id number], Partial fill upon patient request if the [...] tablet, 1 Refills, Maintenance, 06/23/22 14:54:00 EDT, [facility], 162.5, cm, 05/06/22 11:38:00 EDT, Height, 54.54, [...] capsule, 0 Refills, Maintenance, 04/29/22 13:03:00 EDT, [facility], 162.5, cm, 03/07/22 14:19:00 EDT, Height, 54.54, kg, 10/15/20 0:39:00 EST, Dry Weight Start Date: 04/29/22 Status: Orderedomeprazole 20 mg oral enteric coated capsule See Instructions, TAKE 1 CAPSULE BY MOUTH DAILY, # 28 capsule, 6 Refills, Maintenance, 05/30/22 10:38:00 EDT, [facility], 162.5, cm, 05/06/22 11:38:00 EDT, Height, 54.54, [...] PRN as needed for wheezing, label in togolese, # 8.5 Gm, 11 Refills, Maintenance, 05/06/22 12:19:00 EDT, Aerosol, [facility]/pharmacy #[id number], Partial fill upon patient request if the prescription is for a schedule II opioid... Start Date: 05/06/22 Status: OrderedSenna 8.6 mg oral tablet 8.6 mg, 1, tablet, By Mouth, Daily at bedtime, for constipation with plenty of water label in togolese, # 100 tablet, Refills 6, Tot. Refills 6, Maintenance, 07/19/21 9:09:00 EST, Route to Pharmacy Electronically, [id number],... Start Date: 07/19/21 Status: OrderedSEROquel [...] 04/29/22 13:03:00 EDT, Route to Pharmacy Electronically, [facility]-, 162.5, cm, 03/07/22 14:19:00 EDT, Height, 54.54, kg, 10/15/20 0:39:00 EST, Dry... Start Date: 04/29/22 Status: OrderedtiZANidine 2 mg oral tablet See Instructions, TAKE 1 TABLET BY MOUTH THREE TIMES A DAY FOR MUSCLE PAIN, # 84 tablet, Refills 1, Tot. Refills 1, Maintenance, 05/30/22 10:38:00 EDT, Instructions Replace Required Details, Route to Pharmacy Electronically, [facility]-, 16... Start Date: 05/30/22 Status: OrderedTrileptal 150 [...] Confirmed Active BHCP Mary Anne Mejia Lead Orthodontic Treatment Coordinator [phone] Polysubstance abuse Confirmed Active (cocaine, opiate) Varicose vein Confirmed Active Venous insufficiency Confirmed Active Social History Social History Type Response Smoking Status Never smoker entered on: 02/03/15 Sex Patient Care team information PersonnelName: Ame Santiago Address: Address: [address] [place] [address]
--- OUTSIDE RECORDS SUMMARY | 2022-07-10 03:18 | XMS_ITS | Continuity of Care Document ---
:1970 Author Organization [facility] Address [address] [place] [address]- Care Team Providers Name Role Phone Not on Staff, PCP Primary Care Physician Unavailable [place] [facility] [place](s): 09/02/20 - 10/21/20 [facility] [address] [place] [address]- Attending Physician: Ame Santiago Allergies, Adverse Reactions, Alerts Substance Reaction Severity Status sulfa drugs Active Medications albuterol CFC free 90 mcg/inh inhalation aerosol 2, puffs, Inhalation, 4 times a day, PRN, # 8.5 Gm, Refills 0, Tot. Refills 0, Maintenance, 10/20/2109:09:00 EST, Aerosol, Route to Pharmacy Electronically, NCPDP_[id number], [facility], 162.5, cm, 10/20/20 9:49:00 EST, Height... Start Date: 10/20/20 Status: Ordereddocusate-senna 50 mg-8.6 mg oral capsule 1 capsule, By Mouth, 2 times a day, for 30 days, # 60 capsule, 0 Refills, Acute 12/18/20 17:13:00 EDT, 11/18/20 17:13:00 EDT, Capsule, [facility], Partial fill upon patient request if the prescription is for a schedule II opioi... Start Date: 11/18/20 Stop Date: 12/18/20 Status: Ordereddocusate-senna 50 mg-8.6 mg oral capsule 1 capsule, By Mouth, 2 times a day, for 30 days, # 60 capsule, 0 Refills, Acute 11/18/20 17:13:00 EDT, 10/19/20 17:13:00 EST, Capsule, Partial fill upon patient request if the prescription is for a schedule II opioid drug. Start Date: 10/19/20 Stop Date: 11/18/20 Status: OrderedMethadone = 70 mg, By Mouth, Daily, 0 Refills, Maintenance, 10/15/20 2:11:00 EST, Partial fill upon patient request if the prescription is for a schedule II opioid drug. Start Date: 10/15/20 Status: Orderedmirtazapine 15 mg oral tablet 1 tablet = 15 mg, By Mouth, Daily at bedtime, # 30 tablet, 0 Refills, Maintenance, 11/18/20 17:12:00EDT, Tablet, [facility], 162.5, cm, 10/20/20 9:49:00 EST, Height, 54.54, kg,10/15/20 0:39:00 EST, Dry Weight Start Date: 11/18/20 Stop Date: 12/18/20 Status: Orderedmirtazapine 15 mg oral tablet 1 tablet = 15 mg, By Mouth, Daily at bedtime, for 30 days, # 30 tablet, 0 Refills, Hard Stop 11/18/20 17:12:00 EDT, 10/19/20 17:12:00 EST, Tablet Start Date: 10/19/20 Stop Date: 11/18/20 Status: OrderedNicotine 2 mg gum = 2 mg, Chew, Every hour, PRN Other, for 4 week(s), Nicotine Cravings, # 160 each, 0 Refills, Acute 12/14/20 17:14:00 EDT, 11/16/20 17:14:00 EDT, Gum, [facility], Partial fill upon patient request if the prescription is for a s... Start Date: 11/16/20 Stop Date: 12/14/20 Status: OrderedNicotine 2 mg gum = 2 mg, Chew, Every hour, PRN Other, for 4 week(s), Nicotine Cravings, # 160 each, 0 Refills, Acute 11/16/20 17:14:00 EDT, 10/19/20 17:14:00 EST, Gum, Partial fill upon patient request if the prescription is for a schedule II opioid drug. Start Date: 10/19/20 Stop Date: 11/16/20 Status: OrderedSEROquel 100 mg oral tablet 100 mg, 1, tablet, By Mouth, 3 times a day, # 90 tablet, Refills 0, Tot. Refills 0, Maintenance, 11/18/20 17:14:00 EDT, Route to Pharmacy Electronically, [facility], Partial fill upon patient request if the prescription is for... Start Date: 11/18/20 Stop Date: 12/18/20 Status: OrderedSEROquel 100 mg oral tablet 100 mg, 1, tablet, By Mouth, 3 times a day, for 30 days, # 90 tablet, Refills 0, Tot. Refills 0, Hard Stop 11/18/20 17:14:00 EDT, 10/19/20 17:14:00 EST, Do Not Route, Partial fill upon patient request if the prescription is for a schedule II opioid drug. Start Date: 10/19/20 Stop Date: 11/18/20 Status: Ordered Problem List Condition Effective Dates Status Health Status Informant Low back pain(Confirmed) Active Polysubstance abuse (cocaine, Active opiate)(Confirmed) Varicose vein(Confirmed) Active Venous insufficiency(Confirmed) Active Social History Social History Type Response Smoking Status Never smoker entered on: 02/03/15 Sex
--- OUTSIDE RECORDS SUMMARY | 2022-07-10 03:18 | XMS_ITS | Continuity of Care Document ---
:1970 Author Organization [facility] Address [address] [place] [address]- Care Team Providers Name Role Phone Passer Ame BISHOP Primary Care Physician [place] [facility] [place] Date(s): 12/21/21 - 01/22/[address] [id number] Attending Physician: Stoney Greco Admitting Physician: Stoney [...] 10/20/2109:09:00 EST, Aerosol, Route to Pharmacy Electronically, NCPDP_[id number], [facility], 162.5, cm, 10/20/20 9:49:00 EST, Height... Start Date: 10/20/20 Status: OrderedBoostrix (Tdap) intramuscular suspension 0.5 mL, Intramuscular, Once, # 5 mL, 0 Refills, Soft Stop, 07/19/21 9:13:00 EST, Suspension, [facility], Partial fill upon patient request if [...] mouth and throat after use label in cook islander, # 12 Gm, 11 Refills, Maintenance, 07/19/21 9:05:00 EST, Aerosol, [facility], Partial fill upon patient request if the p... Start Date: 07/19/21 Status: Orderedinfluenza virus vaccine, inactivated adjuvanted preservative-free quadrivalent intramuscular susp 0.5 mL, Intramuscular, Once, # 0.5 mL, 0 Refills, Soft Stop, 07/19/21 9:13:00 EST, Suspension, [facility]-[id number], Partial fill upon patient request if the [...] SHOULDER PAIN., # 56 tablet, 5 Refills, [facility]-, 162.5, cm, 11/03/21 10:17:00 EST, Height, 54.54, kg, 10/15/20 0:39:00 EST, DryWeight Start Date: 12/09/21 Status: Orderedomeprazole 20 mg oral enteric coated capsule 1 capsule = 20 mg, By Mouth, Daily, for gastritis label in cook islander, # 30 capsule, 6 Refills, Maintenance, 07/19/21 9:09:00 EST, EC Capsule, [facility], Partial fill upon patientrequest if the [...] PRN as needed for wheezing, label in cook islander, # 8.5 Gm, 11 Refills, Maintenance, 07/19/21 9:09:00 EST, Aerosol, [facility], Partial fill uponpatient request if the prescription is for a sche... Start Date: 07/19/21 Status: OrderedSenna 8.6 mg oral tablet 8.6 mg, 1, tablet, By Mouth, Daily at bedtime, for constipation with plenty of water label in cook islander, # 100 tablet, Refills 6, Tot. Refills 6, Maintenance, 07/19/21 9:09:00 EST, Route to Pharmacy Electronically, [facility],... Start Date: 07/19/21 Status: OrderedSEROquel 300 [...] tablet, Refills 1, Route to Pharmacy Electronically, [facility], 162.5, cm, 11/03/21 10:17:00 EST, Height, 54.54, [...] Active Asthma, moderate persistent(Confirmed) Active *[facility] Mej[facility] Lead Porcelain Technician [phone](Confirmed) Polysubstance abuse (cocaine, Active opiate)(Confirmed) Varicose vein(Confirmed) Active Venous insufficiency(Confirmed) Active Social History Social History Type Response Smoking Status Never smoker entered on: 02/03/15 Sex
--- OUTSIDE RECORDS SUMMARY | 2022-07-10 03:18 | XMS_ITS | Continuity of Care Document ---
:1970 Author Organization [facility] Address [address] [place] [id number]- Care Team Providers Name Role Phone Passer Ame BISHOP Primary Care Physician [phone] Encounter [facility] [place] Date(s): 04/22/22 - 05/27/22 [facility] [address]- Attending Physician: Lon Burt MD Admitting Physician: Lon Burt MD Allergies, Adverse Reactions, Alerts Substance Reaction Severity [...] Refills, Maintenance, 05/06/22 12:20:00 EDT, Solution, [id number], Partial fill upon patient request if the prescription is for a schedule II opioid drug., 162.5,... Start Date: 05/06/22 Status: Orderedalbuterol CFC free 90 mcg/inh inhalation aerosol 2, puffs, Inhalation, 4 times a day, PRN, # 8.5 Gm, Refills 0, Tot. Refills 0, Maintenance, 10/20/2109:09:00 EST, Aerosol, Route to Pharmacy Electronically, NCPDP_[id number], [facility]-[id number], 162.5, cm, 10/20/20 9:49:00 EST, Height... Start Date: 10/20/20 Status: OrderedBoostrix (Tdap) intramuscular suspension 0.5 mL, Intramuscular, Once, # 5 mL, 0 Refills, Soft Stop, 07/19/21 9:13:00 EST, Suspension, [facility]-20199, Partial fill upon patient request if the prescription is for a schedule II opioid drug., 0.5 mL Intramuscular Once, 162.5,... Start Date: 07/19/21 Status: OrderedcloNIDine 0.1 mg oral tablet 0.1 mg, 1, tablet, By Mouth, 2 times a day, for anxiety label in albanian covering for Psychiatrist, # 60 tablet, Refills 1, Tot. Refills 1, Maintenance, 05/06/22 12:19:00 EDT, Route to Pharmacy Electronically, [facility]/pharmacy #[id number], Partial fill upon p... Start Date: 05/06/22 Status: OrderedFlovent HFA 110 mcg/inh inhalation aerosol 2 puffs, Inhalation, 2 times a day, for asthma control rinse mouth and throat after use label in albanian, # 12 Gm, 11 Refills, Maintenance, 05/06/22 12:19:00 EDT, Aerosol, [facility]/pharmacy #[id number], Partial fill upon patient [...] Refills, Soft Stop, 07/19/21 9:13:00 EST, Suspension, [id number], Partial fill upon patient request if the [...] SHOULDER PAIN., # 56 tablet, 5 Refills, [facility], 162.5, cm, 11/03/21 10:17:00 EST, Height, 54.54, kg, 10/15/20 0:39:00 EST, DryWeight Start Date: 12/09/21 Status: OrderedNebulizer with tubing and mask Nebulizer [...] capsule, 0 Refills, Maintenance, 04/29/22 13:03:00 EDT[facility] 162.5, cm, 03/07/22 14:19:00 EDT, Height, 54.54, kg, 10/15/20 0:39:00 EST, Dry Weight Start Date: 04/29/22 Status: Orderedprazosin 1 mg oral capsule 1 mg, 1, capsule, By Mouth, 3 times a day, Refills 0, Maintenance, 07/19/21 8:37:00 EST, Partial fill upon patient request if the prescription is for a schedule II opioid drug. Start Date: 07/19/21 Status: OrderedProAir HFA 90 mcg/inh inhalation aerosol 2 puffs, Inhalation, Every 4 hours, PRN as needed for wheezing, label in albanian, # 8.5 Gm, 11 Refills, Maintenance, 05/06/22 12:19:00 EDT, [facility]erosol, [id number], Partial fill upon patient request if the prescription is for a schedule II opioid... Start Date: 05/06/22 Status: OrderedSenna 8.6 mg oral tablet 8.6 mg, 1, tablet, By Mouth, Daily at bedtime, for constipation with plenty of water label in albanian, # 100 tablet, Refills 6, Tot. Refills 6, Maintenance, 07/19/21 9:09:00 EST, Route to Pharmacy Electronically, [id number],... Start Date: 07/19/21 Status: OrderedSEROquel 300 [...] EDT, Route to Pharmacy Electronically, [facility]-, 162.5, cm, 03/07/22 14:19:00 EDT, Height, 54.54, kg, 10/15/20 0:39:00 EST, Dry... Start Date: 04/29/22 Status: OrderedTrileptal 150 mg oral tablet 150 [...] Confirmed Active [facility] Mary Anne Mejia Lead Radio Station Audio Engineer [phone] Polysubstance abuse Confirmed Active (cocaine, opiate) Varicose vein Confirmed Active Venous insufficiency Confirmed Active Social History Social History Type Response Smoking Status Never smoker entered on: 02/03/15 Sex Patient Care team information PersonnelName: Ame Santiago Address: Address: [address] [place] [address]
--- OUTSIDE RECORDS SUMMARY | 2022-07-10 03:19 | XMS_ITS | Continuity of Care Document ---
:1970 Author Organization [facility] Address Unavailable , Care Team Providers Name Role Phone Ame Santiago Primary Care Physician [place] [facility] [place] 09/20/21 - 09/27/21 [facility] Attending Physician: Ame Santiago Allergies, Adverse Reactions, [...] 10/20/2109:09:00 EST, Aerosol, Route to Pharmacy Electronically, NCPDP_[id number], [facility]-20199, 162.5, cm, 10/20/20 9:49:00 EST, Height... Start Date: 10/20/20 Status: OrderedBoostrix (Tdap) intramuscular suspension 0.5 mL, Intramuscular, Once, # 5 mL, 0 Refills, Soft Stop, 07/19/21 9:13:00 EST, Suspension, [facility]-20199, Partial fill upon patient request if [...] mouth and throat after use label in french, # 12 Gm, 11 Refills, Maintenance, 07/19/21 9:05:00 EST, Aerosol, [facility]-20199, Partial fill upon patient request if the p... Start Date: 07/19/21 Status: Orderedinfluenza virus vaccine, inactivated adjuvanted preservative-free quadrivalent intramuscular susp 0.5 mL, Intramuscular, Once, # 0.5 mL, 0 Refills, Soft Stop, 07/19/21 9:13:00 EST, Suspension, [id number], Partial fill upon patient request if the [...] and shoulder pain with food label in french, # 60 tablet, 2 Refills, Maintenance, 09/27/21 15:04:00 EST, Tablet, [facility]-20199, Partial fill upon patien... Start Date: 09/27/21 Status: Orderedomeprazole 20 mg oral enteric coated capsule 1 capsule = 20 mg, By Mouth, Daily, for gastritis label in french, # 30 capsule, 6 Refills, Maintenance, 07/19/21 9:09:00 EST, EC Capsule, [facility]-20199, Partial fill upon patientrequest if the [...] PRN as needed for wheezing, label in french, # 8.5 Gm, 11 Refills, Maintenance, 07/19/21 9:09:00 EST, Aerosol, [facility]-20199, Partial fill uponpatient request if the prescription is for a sche... Start Date: 07/19/21 Status: OrderedSenna 8.6 mg oral tablet 8.6 mg, 1, tablet, By Mouth, Daily at bedtime, for constipation with plenty of water label in french, # 100 tablet, Refills 6, Tot. Refills 6, Maintenance, 07/19/21 9:09:00 EST, Route to Pharmacy Electronically, [facility]-201[facility],... Start Date: 07/19/21 Status: OrderedSEROquel 300 [...] a day, for muscle pain label in french, # 90 tablet, Refills 0, Tot. Refills 0, Maintenance, 09/27/21 15:04:00 EST, Route to Pharmacy Electronically, [facility]201[facility], Partial fill upon patient re... Start [...] moderate persistent(Confirmed) Active *Care management [facility] Mary Anne Mejia Lead Director Of Content And Programming [phone](Confirmed) Polysubstance abuse (cocaine, Active opiate)(Confirmed) Varicose vein(Confirmed) Active Venous insufficiency(Confirmed) Active Vital Signs Most recent to oldest [Reference Range]: 1 Height 162.5 cm (09/20/21 1:33 PM) Social History Social History Type Response Smoking Status Never smoker entered on: 02/03/15 Sex
--- OUTSIDE RECORDS SUMMARY | 2022-07-10 03:19 | XMS_ITS | Continuity of Care Document ---
:1970 Author Organization [facility] Address [address] [place] [address]- Care Team Providers Name Role Phone Not on Staff, PCP Primary Care Physician Unavailable [place] [facility] [place] Date(s): 09/21/20 - 10/21/20 [facility]/[address] [address] Attending Physician: Nani Alonso Admitting Physician: Admtr, Nani Referring Physician: Admtr, Ar8 Allergies, Adverse Reactions, Alerts Substance Reaction Severity Status sulfa drugs Active Medications albuterol CFC free 90 mcg/inh inhalation aerosol 2, puffs, Inhalation, 4 times a day, PRN, # 8.5 Gm, Refills 0, Tot. Refills 0, Maintenance, 10/20/2109:09:00 EST, Aerosol, Route to Pharmacy Electronically, NCPDP_[id number], [facility]-20199, 162.5, cm, 10/20/20 9:49:00 EST, Height... Start Date: 10/20/20 Status: Ordereddocusate-senna 50 mg-8.6 mg oral capsule 1 capsule, By Mouth, 2 times a day, for 30 days, # 60 capsule, 0 Refills, Acute 12/18/20 17:13:00 EDT, 11/18/20 17:13:00 EDT, Capsule, [facility]-20199, Partial fill upon patient request if [...] tablet, 0 Refills, Maintenance, 11/18/20 17:12:00EDT, Tablet, [facility]-20199, 162.5, cm, 10/20/20 9:49:00 EST, Height, 54.54, [...] 12/14/20 17:14:00 EDT, 11/16/20 17:14:00 EDT, Gum, [facility]-20199, Partial fill upon patient request if [...] 11/18/20 17:14:00 EDT, Route to Pharmacy Electronically, [facility], Partial fill upon patient request if the [...]
--- OUTSIDE RECORDS SUMMARY | 2022-07-10 03:19 | XMS_ITS | Continuity of Care Document ---
:1970 Author Organization [facility] Address [address] [place] [address]- Care Team Providers Name Role Phone Ame Santiago Primary Care Physician Encounter [facility] Date(s): 03/14/22 - 05/20/22 [facility] [address]- Attending Physician: Ame Santiago Admitting Physician: Ame Santiago Allergies, Adverse Reactions, Alerts Substance Reaction Severity Status sulfa drugs Active Immunizations Given and Recorded Vaccine Date Status Refusal Reason influenza virus vaccine, inactivated 07/19/21 Recorded tetanus/diphtheria/pertussis, acel(Tdap) 07/19/21 Recorde d SARS-CoV-2 (COVID-19) mRNA-9883 vaccine 01/11/21 Recorded Medications 18 inch shower [...] Refills, Maintenance, 05/06/22 12:20:00 EDT, [facility], [id number], Partial fill upon patient request if the prescription is for a schedule II opioid drug., 162.5,... Start Date: 05/06/22 Status: Orderedalbuterol CFC free 90 mcg/inh inhalation aerosol 2, puffs, Inhalation, 4 times a day, PRN, # 8.5 Gm, Refills 0, Tot. Refills 0, Maintenance, 10/20/2109:09:00 EST, Aerosol, Route to Pharmacy Electronically, NCPDP_[id number], [facility], 162.5, cm, 10/20/20 9:49:00 EST, Height... Start Date: 10/20/20 Status: OrderedBoostrix (Tdap) intramuscular suspension 0.5 mL, Intramuscular, Once, # 5 mL, 0 Refills, Soft Stop, 07/19/21 9:13:00 EST, Suspension, [facility], Partial fill upon patient request if the prescription is for a schedule II opioid drug., 0.5 mL Intramuscular Once, 162.5,... Start Date: 07/19/21 Status: OrderedcloNIDine 0.1 mg oral tablet 0.1 mg, 1, tablet, By Mouth, 2 times a day, for anxiety label in equatorial guinean covering for Psychiatrist, # 60 tablet, Refills 1, Tot. Refills 1, Maintenance, 05/06/22 12:19:00 EDT, [id number], Partial fill upon p... Start Date: 05/06/22 Status: OrderedFlovent HFA 110 mcg/inh inhalation aerosol 2 puffs, Inhalation, 2 times a day, for asthma control rinse mouth and throat after use label in equatorial guinean, # 12 Gm, 11 Refills, Maintenance, 05/06/22 12:19:00 EDT, Aerosol, [facility]/pharmacy #[id number], Partial fill upon patient request [...] Refills, Soft Stop, 07/19/21 9:13:00 EST, Suspension, [id number], Partial fill upon patient request if the [...] SHOULDER PAIN., # 56 tablet, 5 Refills, [facility], 162.5, cm, 11/03/21 10:17:00 EST, [...] capsule, 0 Refills, Maintenance, 04/29/22 13:03:00 EDT, [facility], 162.5, cm, 03/07/22 14:19:00 EDT, [...] PRN as needed for wheezing, label in equatorial guinean, # 8.5 Gm, 11 Refills, Maintenance, 05/06/22 12:19:00 EDT, Aerosol, [facility]/pharmacy #[id number], Partial fill upon patient request if the prescription is for a schedule II opioid... Start Date: 05/06/22 Status: OrderedSenna 8.6 mg oral tablet 8.6 mg, 1, tablet, By Mouth, Daily at bedtime, for constipation with plenty of water label in equatorial guinean, # 100 tablet, Refills 6, Tot. Refills 6, Maintenance, 07/19/21 9:09:00 EST, Route to Pharmacy Electronically, [facility]-[address],... Start Date: 07/19/21 Status: OrderedSEROquel 300 mg [...] 04/29/22 13:03:00 EDT, Route to Pharmacy Electronically, [facility]-, 162.5, cm, 03/07/22 14:19:00 EDT, Height, [...] Active Asthma, moderate persistent(Confirmed) Active *Care management [facility] Mary Anne Mejia Lead Sprinkler Installer [phone](Confirmed) Polysubstance abuse (cocaine, Active opiate)(Confirmed) Varicose vein(Confirmed) Active Venous insufficiency(Confirmed) Active Social History Social History Type Response Smoking Status Never smoker entered on: 02/03/15 Sex Care Team PersonnelName: Ame Santiago Address: [address] [place] [address]
--- OUTSIDE RECORDS SUMMARY | 2022-07-10 03:19 | XMS_ITS | Continuity of Care Document ---
:1970 Author Organization [facility] Address Unavailable , Care Team Providers Name Role Phone Ame Santiago Primary Care Physician [phone] [place] [facility] [place](s): 11/08/21 - 12/31/21 [facility] Attending Physician: Stoney Greco Referring Physician: Ame [...] 10/20/2109:09:00 EST, Aerosol, Route to Pharmacy Electronically, NCPDP_[id number], [facility]-20199, 162.5, cm, 10/20/20 9:49:00 EST, Height... Start Date: 10/20/20 Status: OrderedBoostrix (Tdap) intramuscular suspension 0.5 mL, Intramuscular, Once, # 5 mL, 0 Refills, Soft Stop, 07/19/21 9:13:00 EST, Suspension, [facility]-20199, Partial fill upon patient request if [...] mouth and throat after use label in samoan, # 12 Gm, 11 Refills, Maintenance, 07/19/21 9:05:00 EST, Aerosol, [facility]-20199, Partial fill upon patient request if the p... Start Date: 07/19/21 Status: Orderedinfluenza virus vaccine, inactivated adjuvanted preservative-free quadrivalent intramuscular susp 0.5 mL, Intramuscular, Once, # 0.5 mL, 0 Refills, Soft Stop, 07/19/21 9:13:00 EST, Suspension, [id number], Partial fill upon patient request if the [...] SHOULDER PAIN., # 56 tablet, 5 Refills, [facility], 162.5, cm, 11/03/21 10:17:00 EST, Height, 54.54, kg, 10/15/20 0:39:00 EST, DryWeight Start Date: 12/09/21 Status: Orderedomeprazole 20 mg oral enteric coated capsule 1 capsule = 20 mg, By Mouth, Daily, for gastritis label in samoan, # 30 capsule, 6 Refills, Maintenance, 07/19/21 9:09:00 EST, EC Capsule, [facility]-20199, Partial fill upon patientrequest if the [...] PRN as needed for wheezing, label in samoan, # 8.5 Gm, 11 Refills, Maintenance, 07/19/21 9:09:00 EST, Aerosol, [facility]-20199, Partial fill uponpatient request if the prescription is for a sche... Start Date: 07/19/21 Status: OrderedSenna 8.6 mg oral tablet 8.6 mg, 1, tablet, By Mouth, Daily at bedtime, for constipation with plenty of water label in samoan, # 100 tablet, Refills 6, Tot. Refills 6, Maintenance, 07/19/21 9:09:00 EST, Route to Pharmacy Electronically, [facility]-[id number],... Start Date: 07/19/21 Status: OrderedSEROquel 300 [...] tablet, Refills 1, Route to Pharmacy Electronically, [facility], 162.5, cm, 11/03/21 10:17:00 EST, Height, 54.54, [...] Active Asthma, moderate persistent(Confirmed) Active *Care management [facility] Mary Anne Mejia Lead Land Checker [phone](Confirmed) Polysubstance abuse (cocaine, Active opiate)(Confirmed) Varicose vein(Confirmed) Active Venous insufficiency(Confirmed) Active Social History Social History Type Response Smoking Status Never smoker entered on: 02/03/15 Sex
--- OUTSIDE RECORDS SUMMARY | 2022-07-10 03:19 | XMS_ITS | Continuity of Care Document ---
:1970 Author Organization [facility] enter/[facility] Address Unavailable , Care Team Providers Name Role Phone Ame Santiago Primary Care Physician [phone] [place] [facility] [place] 10/04/21 [facility] Attending Physician: Ame Santiago Allergies, Adverse Reactions, [...] 10/20/2109:09:00 EST, Aerosol, Route to Pharmacy Electronically, NCPDP_[id number], [facility]-20199, 162.5, cm, 10/20/20 9:49:00 EST, Height... Start Date: 10/20/20 Status: OrderedBoostrix (Tdap) intramuscular suspension 0.5 mL, Intramuscular, Once, # 5 mL, 0 Refills, Soft Stop, 07/19/21 9:13:00 EST, Suspension, [facility]-20199, Partial fill upon patient request [...] mouth and throat after use label in indian, # 12 Gm, 11 Refills, Maintenance, 07/19/21 9:05:00 EST, Aerosol, [facility]-20199, Partial fill upon patient request if the p... Start Date: 07/19/21 Status: Orderedinfluenza virus vaccine, inactivated adjuvanted preservative-free quadrivalent intramuscular susp 0.5 mL, Intramuscular, Once, # 0.5 mL, 0 Refills, Soft Stop, 07/19/21 9:13:00 EST, Suspension, [id number], Partial fill upon patient request if the [...] and shoulder pain with food label in indian, # 60 tablet, 2 Refills, Maintenance, 09/27/21 15:04:00 EST, Tablet, [facility]-20199, Partial fill upon patien... Start Date: 09/27/21 Status: Orderedomeprazole 20 mg oral enteric coated capsule 1 capsule = 20 mg, By Mouth, Daily, for gastritis label in indian, # 30 capsule, 6 Refills, Maintenance, 07/19/21 9:09:00 EST, EC Capsule, [facility]-20199, Partial fill upon patientrequest if the [...] PRN as needed for wheezing, label in indian, # 8.5 Gm, 11 Refills, Maintenance, 07/19/21 9:09:00 EST, Aerosol, [facility]-20199, Partial fill uponpatient request if the prescription is for a sche... Start Date: 07/19/21 Status: OrderedSenna 8.6 mg oral tablet 8.6 mg, 1, tablet, By Mouth, Daily at bedtime, for constipation with plenty of water label in indian, # 100 tablet, Refills 6, Tot. Refills 6, Maintenance, 07/19/21 9:09:00 EST, Route to Pharmacy Electronically, [facility]-20199,... Start Date: 07/19/21 Status: OrderedSEROquel [...] a day, for muscle pain label in indian, # 90 tablet, Refills 0, Tot. Refills 0, Maintenance, 09/27/21 15:04:00 EST, Route to Pharmacy Electronically, [facility]-20199, Partial fill upon patient re... Start [...] Active Asthma, moderate persistent(Confirmed) Active *[facility] Lead Board Runner [phone](Confirmed) Polysubstance abuse (cocaine, Active opiate)(Confirmed) Varicose vein(Confirmed) Active Venous insufficiency(Confirmed) Active Vital Signs Most recent to oldest [Reference Range]: 1 Height 162.5 cm (09/27/21 2:42 PM) Weight 55 kg (09/27/21 2:42 PM) Oxygen Saturation [94-100 %] 98 % (09/27/21 2:42 PM) Pulse Rate [55-90 bpm] 67 bpm (09/27/21 2:42 PM) Body Mass Index [18.5-24.99] 20.83 (09/27/21 2:42 PM) Blood Pressure [90-138/55-84 mm Hg] 117/60 mm Hg (09/27/21 2:42 PM) Respiratory Rate [16-30 br/min] 16 br/min (09/27/21 2:42 PM) Temperature [96.8-100.4 DegF] 98.7 DegF (09/27/21 2:42 PM) Mode of Delivery (Oxygen) Room air (09/27/21 2:42 PM) Blood pressure sites Arm, left (09/27/21 2:42 PM) Temperature Route Oral (09/27/21 2:42 PM) Weight Obtained Via Standing scale (09/27/21 2:42 PM) Social History Social History Type Response Smoking Status Never smoker entered on: 02/03/15 Sex
--- NOTE | 2022-07-10 04:16 | PC.NURSE ---
Pt sleeping respirations normal.
--- NOTE | 2022-07-10 07:22 | MHC.CARE ---
Jone Smart Sheet Submitted
[2022-07-10 07:24] VITALS: RESP 16
--- NOTE | 2022-07-10 07:27 | PC.NURSE ---
Addendum entered by Crys Sibley 07/10/22 10:32: Pt notified of location of methadone. Addendum entered by Crys Sibley 07/10/22 10:31: Methadone located in belongings. Brought to pharmacy per protocol. Dual RN sign due to pt condition. Addendum entered by Crys Sibley 07/10/22 09:51: Per pt: she is a patient of the [facility] clinic. She takes methadone 50mg BID. Unable to verify due to weekend hours. contact made to pharmacy regarding verification and max dose that can be administered w/o verification. Original Note: Report taken from overnight shift. No acute incidents. Plan is for [facility] lazo this am.
--- NOTE | 2022-07-10 09:49 | PHA.MEDREC ---
Pharmacy Consult ? Medication Reconciliation Pharmacy has completed the medication reconciliation.
--- NOTE | 2022-07-10 09:50 | HE.PHANOTE ---
Methadone [facility] on [facility] contacted. Last dose at clinic was 07/09/22 @0853. Patient is on split dosing , 50 mg in am and 50 mg in PM. patient was given take home bottles up until 07/11/22. clinic phone number [phone]
[2022-07-10] MEDS: methADONE HCl 20 MG/2 ML ORAL.CONC 50 MG PO ×2 (10:30→21:24)
[2022-07-10 14:00] VITALS: RESP 14
[2022-07-10] MEDS: cloNIDine HCL 0.1 MG TABLET PO (21:24)
[2022-07-11 06:29] VITALS: BP 135/82; PULSE 56; RESP 16; TEMP 36.9; O2SAT 99
--- NOTE | 2022-07-11 06:52 | PC.NURSE ---
Patient slept through the night without complaint or incident. 15min checks done.
[2022-07-11] MEDS: methADONE HCl 20 MG/2 ML ORAL.CONC 50 MG PO ×2 (08:30→20:42)
[2022-07-11 09:00] VITALS: BP 118/73; PULSE 60; TEMP 37.2; O2SAT 100
[2022-07-11] MEDS: Fluticasone Propionate 100 MCG BLST.W.DEV 2 PUFF INHALE ×2 (10:33→20:43)
--- NOTE | 2022-07-11 11:30 | PC.NURSE ---
PT CALM AND COOPERATIVE. SECT 12 BEDSEARCH.
--- NOTE | 2022-07-11 11:49 | ECG_ITS ---
Test Reason : MEDICAL CLEARANCE Blood Pressure : / mmHG Vent. Rate : 054 BPM Atrial Rate : 054 BPM P-R Int : 156 ms QRS Dur : 084 ms QT Int : 472 ms P-R-T Axes : 041 043 058 degrees QTc Int : 447 ms Sinus bradycardia Otherwise normal ECG No previous ECGs available Referred By: Dhaval Stovall Electronically Signed By:LA MAN MD
--- NOTE | 2022-07-11 14:04 | PC.NURSE ---
NURSE TO NURSE TO ABEBE COBB ON M5
--- NOTE | 2022-07-11 16:01 | PC.NURSE ---
assumed care of pt at 1500, pt resting quietly, calm, no distress noted, pt pending bed assignment and admission orders.
[2022-07-11 17:33] VITALS: BP 157/73; PULSE 72; TEMP 36.7; O2SAT 98
--- NOTE | 2022-07-11 17:58 | PC.ADMIT ---
pt is a 52 year old female who represented to [facility] ED high on cocaine, heroin and opioids. pt PMH includes COPD, substance abuse, schizoaffective disorder. pt had multiple inpatient stays, rehab, and detox spanning over 20 years. pt is new zealander speaking only. pt can only speak a little bit of Frisian. an diplomatic interpreter was called for admission. during admission, pt answered all questions and responded appropriately. pt went to sleep after admission.
[2022-07-11 21:39] VITALS: BP 157/73; PULSE 72; TEMP 36.7; O2SAT 98
[2022-07-12 08:10] VITALS: BP 143/80; PULSE 61; TEMP 36.2; O2SAT 100
[2022-07-12] MEDS: methADONE HCl 20 MG/2 ML ORAL.CONC 50 MG PO ×2 (08:35→19:54)
[2022-07-12] MEDS: Fluticasone Propionate 100 MCG BLST.W.DEV 2 PUFF INHALE ×2 (08:35→20:04)
[2022-07-12 09:29] LABS: Estimated Average Glucose 91 mg/dL; Hemoglobin A1c % 4.8 %
[2022-07-12 10:23] LABS: Cholesterol 165 mg/dL; HDL Cholesterol 61 mg/dL; LDL Cholesterol Calculated 93 mg/dl; Magnesium 2.1 mg/dL (1.6-2.6); Triglycerides 59 mg/dL
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
[2022-07-12 10:46] LABS: Free T4 (Free Thyroxine) 0.91 ng/dL (0.71-1.85); Thyroid Stimulating Hormone 0.61 uIU/mL (0.32-4.0)
[2022-07-12 11:00] LABS: Folate 16.5 ng/mL (> or = 4.0); Vitamin B12 437 pg/mL (200-900)
[2022-07-12] MEDS: cloNIDine HCL 0.1 MG TABLET PO (16:16)
[2022-07-12 18:00] VITALS: BP 129/65; PULSE 58; RESP 18; TEMP 36.3; O2SAT 98
[2022-07-12] MEDS: ARIPiprazole 2 MG TABLET 4 MG PO (19:53)
[2022-07-13] MEDS: methADONE HCl 20 MG/2 ML ORAL.CONC 50 MG PO ×2 (07:58→20:52)
[2022-07-13] MEDS: Fluticasone Propionate 100 MCG BLST.W.DEV 2 PUFF INHALE ×2 (07:59→20:55)
[2022-07-13 08:10] VITALS: BP 120/73; PULSE 62; TEMP 36.3; O2SAT 99
--- NOTE | 2022-07-13 08:44 | P.PNPSI_ITS ---
Subjective Subjective Date of Service: 07/13/22 Reason For Visit: Schizoaffective disorder, bipolar typr; opiate use Interim History: Patient reports she is feeling much better and has a much brighter affect to show for it. Patient reports no auditory hallucinations since coming to the [facility], [place] and starting Abilify. She feels Abilify is helpful and would like to get the long-acting injectable if possible. Patient denies any SI at all and says she is in a good mood. She feels she will be getting ready for discharge soon. Denies any complaints and has no request. Says she sleeping and eating well. No observable TD Mental Status Exam Mental Status Exam Narrative: Pt is alert and oriented; behavior is cooperative, calm, friendly; patient is not in distress; dressed in casual attire, adequately groomed; mood is described as good and affect congruent, calm, warm; eye contact appropriate; Speech is normal rate, volume and prosody and not pressured; no psychomotor retardation present; thought process is organized and goal directed; Thought content is on feeling better and discharge soon; otherwise pertinent to relevant topics and without any delusional content, paranoid ideations or grandiosity; denies any SI/HI; AH resolved; Patients insight and judgment are fair. Diagnostics Vital Signs (24Hr): Vital Signs - 24 hr 07/12/22 18:00 Temperature 97.4 F Pulse Rate 58 Respiratory Rate 18 Blood Pressure 129/65 Pulse Oximetry 98 Oxygen Delivery Method Room Air BMI result Body Mass Index 30.0 Labs Results: 07/09/22 18:48 07/09/22 18:48 Labs: Laboratory Results - last 48 hr 07/12/22 07/12/22 07/12/22 08:07 08:07 08:07 Estimat Average Glucose 91 Hemoglobin A1c % 4.8 Magnesium 2.1 Triglycerides 59 Cholesterol 165 LDL Cholesterol, Calc 93 HDL Cholesterol 61 Vitamin B12 437 Folate 16.5 TSH 0.61 Free T4 0.91 Medications Medications Current Medications Acetaminophen (Acetaminophen 325 Mg Tablet) 650 mg PO Q6H PRN PRN Reason: Headache/Pain Mild Scale (1-3) Al Hydroxide/Mg Hydroxide (Magnesium Hydrox/Alum Hydrox 30 Ml Oral.Susp) 30 ml PO Q6H PRN PRN Reason: Heartburn/Nausea Albuterol Sulfate (Albuterol Sulfate (0.083%) 2.5 Mg/3 Ml Vial.Neb) 2.5 mg INHALE Q6H PRN PRN Reason: Shortness Of Breath Albuterol Sulfate (Albuterol Sulfate 90 Mcg 8 Gm Inhaler) 2 puff INHALE Q4H PRN PRN Reason: wheezing Aripiprazole (Aripiprazole 2 Mg Tablet) 4 mg PO BEDTIME [facility] Last Admin: 07/12/22 19:53 Dose: 4 mg Clonidine HCl (Clonidine Hcl 0.1 Mg Tablet) 0.1 mg PO Q4H PRN; Protocol PRN Reason: Anxiety Fluticasone Propionate (Fluticasone Propionate 100 Mcg Blst.W.Dev) 2 puff INHALE RBID [facility] Last Admin: 07/13/22 07:59 Dose: 2 puff Hydroxyzine HCl (Hydroxyzine Hcl 25 Mg Tablet) 25 mg PO Q6H PRN PRN Reason: Anxiety Magnesium Hydroxide (Milk Of Magnesia 30 Ml Oral.Susp) 30 ml PO DAILY PRN PRN Reason: Constipation Methadone HCl (Methadone Hcl 20 Mg/2 Ml Oral.Conc) 50 mg PO BID [facility] Last Admin: 07/13/22 07:58 Dose: 50 mg Pharmacy Consult (Consult Rx Perform Med Rec) 1 each MISCELLANE ONCE PRN PRN Reason: Consult order Trazodone HCl (Trazodone Hcl 50 Mg Tablet) 50 mg PO BEDTIME PRN PRN Reason: Insomnia Allergies Allergies Allergy/AdvReac Type Severity Reaction Status Date / Time Sulfa (Sulfonamide Allergy Unknown UNKNOWN Verified 07/10/22 19:36 Antibiotics) [SULFA (SULFONAMIDE ANTIBIOTICS)] Assessment & Plan Assessment & Plan (1) Psychotic disorder: Status: Acute Code(s): F29 - Unspecified psychosis not due to a substance or known physiological condition (2) Chronic post-traumatic stress disorder (PTSD): Status: Acute Code(s): F43.12 - Post-traumatic stress disorder, chronic (3) Opioid dependence: Status: Acute Code(s): F11.20 - Opioid dependence, uncomplicated (4) Cocaine abuse: Status: Acute Code(s): F14.10 - Cocaine abuse, uncomplicated Plan This is a 52-year-old female with reported history of psychosis, PTSD, depression, cocaine and opioid addiction, who presents for worsening depression and recently SI in the face of going off medications and relapsing on both hero in and cocaine.? Not sure which came 1st, the relapse of the auditory hallucinations; patient has had similar presentations resulted in inpatient admission. Command auditory hallucinations telling her to hurt herself and saying mean things to her causing her much depression. Patient also reports history of depression, PTSD; clearly PTSD and substance abuse worsened symptoms however patient reports having AH even when mood is stable making schizoaffective a possible diagnosis. She agrees to restart Abilify which she remembers and thinks worked in the past; she has also been on Zyprexa. 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 07/13 patient much improved with coming to the milieu and started on Abilify; she reports mood is much better, denies any SI at all and AH has resolved. Patient wants long-acting injectable if possible. Also talking about discharge coming soon. No observable TD symptoms. Plan: CV Q 15 minute checks Continue Abilify, 4 mg q.h.s.; patient has been on 5 mg in the past but due to history of TD and 4mg seems to work well consider Abilify Maintenna Continue methadone 50 mg b.i.d. Continue albuterol for mild asthma History of Wellbutrin, clonidine, Zyprexa I spent minutes with the patient and/or on the patient floor today, greater than?50% of which was spent counseling/coordinating care. Patient educated on: diagnosis and medication risk/benefits Informed Consent: understands Reason for contiued inpatient stay Substantial Risk for: stable for discharge
[2022-07-13] MEDS: Acetaminophen 325 MG TABLET 650 MG PO (12:25)
[2022-07-13 18:25] VITALS: BP 123/75; PULSE 59; RESP 18; TEMP 36.2; O2SAT 98
[2022-07-13] MEDS: ARIPiprazole 2 MG TABLET 4 MG PO (20:52)
[2022-07-14 05:51] VITALS: BP 126/78; PULSE 66; RESP 18; TEMP 36.1; O2SAT 98
[2022-07-14] MEDS: cloNIDine HCL 0.1 MG TABLET PO ×3 (05:52→21:36)
[2022-07-14 07:00] VITALS: BMI 25.9
[2022-07-14] MEDS: Fluticasone Propionate 100 MCG BLST.W.DEV 2 PUFF INHALE ×2 (08:02→20:03)
[2022-07-14] MEDS: methADONE HCl 20 MG/2 ML ORAL.CONC 50 MG PO ×2 (08:02→20:00)
--- NOTE | 2022-07-14 09:34 | HO.PSYCHPN ---
Subjective Subjective Date of Service: 07/14/22 Reason For Visit: Schizoaffective disorder, bipolar typr; opiate use Interim History: pt reports she remains better, in good mood, no depression, no SI, and that AH remains fully resolved. She says she is eating sleeping well and looking forward to discharge tomorrow. Patient received Abilify Maintena without issue. Patient remains in good behavioral and impulse control only unit Mental Status Exam Mental Status Exam Narrative: Pt is alert and oriented; behavior is cooperative, calm, friendly; patient is not in distress; dressed in casual attire, adequately groomed; mood is described as good and affect congruent, calm, warm; eye contact appropriate; Speech is normal rate, volume and prosody and not pressured; no psychomotor retardation present; thought process is organized and goal directed; Thought content is on feeling better and discharge soon; otherwise pertinent to relevant topics and without any delusional content, paranoid ideations or grandiosity; denies any SI/HI; AH resolved; Patients insight and judgment are fair. Diagnostics Vital Signs (24Hr): Vital Signs - 24 hr 07/13/22 18:25 07/14/22 05:51 Temperature 97.1 F 97.0 F Pulse Rate 59 66 Respiratory Rate 18 18 Blood Pressure 123/75 126/78 Pulse Oximetry 98 98 Oxygen Delivery Method Room Air Room Air BMI result Body Mass Index 30.0 Labs Results: 07/09/22 18:48 07/09/22 18:48 Labs: Laboratory Results - last 48 hr 07/12/22 07/12/22 08:07 08:07 Magnesium 2.1 Triglycerides 59 Cholesterol 165 LDL Cholesterol, Calc 93 HDL Cholesterol 61 Vitamin B12 437 Folate 16.5 TSH 0.61 Free T4 0.91 Medications Medications Current Medications Acetaminophen (Acetaminophen 325 Mg Tablet) 650 mg PO Q6H PRN PRN Reason: Headache/Pain Mild Scale (1-3) Last Admin: 07/13/22 12:25 Dose: 650 mg Al Hydroxide/Mg Hydroxide (Magnesium Hydrox/Alum Hydrox 30 Ml Oral.Susp) 30 ml PO Q6H PRN PRN Reason: Heartburn/Nausea Albuterol Sulfate (Albuterol Sulfate (0.083%) 2.5 Mg/3 Ml Vial.Neb) 2.5 mg INHALE Q6H PRN PRN Reason: Shortness Of Breath Albuterol Sulfate (Albuterol Sulfate 90 Mcg 8 Gm Inhaler) 2 puff INHALE Q4H PRN PRN Reason: wheezing Aripiprazole (Aripiprazole 2 Mg Tablet) 4 mg PO BEDTIME [facility] Last Admin: 07/13/22 20:52 Dose: 4 mg Clonidine HCl (Clonidine Hcl 0.1 Mg Tablet) 0.1 mg PO Q4H PRN; Protocol PRN Reason: Anxiety Last Admin: 07/14/22 05:52 Dose: 0.1 mg Fluticasone Propionate (Fluticasone Propionate 100 Mcg Blst.W.Dev) 2 puff INHALE RBID [facility] Last Admin: 07/14/22 08:02 Dose: 2 puff Hydroxyzine HCl (Hydroxyzine Hcl 25 Mg Tablet) 25 mg PO Q6H PRN PRN Reason: Anxiety Magnesium Hydroxide (Milk Of Magnesia 30 Ml Oral.Susp) 30 ml PO DAILY PRN PRN Reason: Constipation Methadone HCl (Methadone Hcl 20 Mg/2 Ml Oral.Conc) 50 mg PO BID [facility] Last Admin: 07/14/22 08:02 Dose: 50 mg Pharmacy Consult (Consult Rx Perform Med Rec) 1 each MISCELLANE ONCE PRN PRN Reason: Consult order Trazodone HCl (Trazodone Hcl 50 Mg Tablet) 50 mg PO BEDTIME PRN PRN Reason: Insomnia Allergies Allergies Allergy/AdvReac Type Severity Reaction Status Date / Time Sulfa (Sulfonamide Allergy Unknown UNKNOWN Verified 07/10/22 19:36 Antibiotics) [SULFA (SULFONAMIDE ANTIBIOTICS)] Assessment & Plan Assessment & Plan (1) Psychotic disorder: Status: Acute Code(s): F29 - Unspecified psychosis not due to a substance or known physiological condition (2) Chronic post-traumatic stress disorder (PTSD): Status: Acute Code(s): F43.12 - Post-traumatic stress disorder, chronic (3) Opioid dependence: Status: Acute Code(s): F11.20 - Opioid dependence, uncomplicated (4) Cocaine abuse: Status: Acute Code(s): F14.10 - Cocaine abuse, uncomplicated Plan This is a 52-year-old female with reported history of psychosis, PTSD, depression, cocaine and opioid addiction, who presents for worsening depression and recently SI in the face of going off medications and relapsing on both heroin and cocaine.? Not sure which came 1st, the relapse of the auditory hallucinations; patient has had similar presentations resulted in inpatient admission. Command auditory hallucinations telling her to hurt herself and saying mean things to her causing her much depression. Patient also reports history of depression, PTSD; clearly PTSD and substance abuse worsened symptoms however patient reports having AH even when mood is stable making schizoaffective a possible diagnosis. She agrees to restart Abilify which she remembers and thinks worked in the past; she has also been on Zyprexa. 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 07/13 patient much improved with coming to the milieu and started on Abilify; she reports mood is much better, denies any SI at all and AH has resolved. Patient wants long-acting injectable if possible. Also talking about discharge coming soon. No observable TD symptoms. 07/14 received Abilify Maintena; good mood, no SI, no AVH. Patient would like to discharge. She is not in imminent risk for harm to self or others and request for discharge honored. Plan: CV Q 15 minute checks Continue Abilify, 4 mg q.h.s.; patient has been on 5 mg in the past but due to history of TD and 4mg seems to work well Received Abilify Maintenna on 07/14 Continue methadone 50 mg b.i.d. Continue albuterol for mild asthma History of Wellbutrin, clonidine, Zyprexa I spent minutes with the patient and/or on the patient floor today, greater than?50% of which was spent counseling/coordinating care. Patient educated on: diagnosis and medication risk/benefits Informed Consent: understands Reason for contiued inpatient stay Substantial Risk for: stable for discharge
[2022-07-14] MEDS: Lidocaine 5 % Ointment 35 GM 1 APPL TOPICAL (13:11)
[2022-07-14] MEDS: ARIPiprazole ER 400 MG SUSER.SYR IM (13:12)
[2022-07-14] MEDS: Acetaminophen 325 MG TABLET 650 MG PO ×2 (15:10→21:36)
[2022-07-14 15:12] VITALS: BP 106/73; PULSE 62
[2022-07-14 17:22] VITALS: BP 119/68; PULSE 54; RESP 16; TEMP 36.8; O2SAT 97
[2022-07-14] MEDS: ARIPiprazole 2 MG TABLET 4 MG PO (20:00)
[2022-07-15 06:00] VITALS: BP 106/62; PULSE 62; RESP 16; TEMP 36.6; O2SAT 98
[2022-07-15] MEDS: methADONE HCl 20 MG/2 ML ORAL.CONC 50 MG PO (08:51)
[2022-07-15] MEDS: cloNIDine HCL 0.1 MG TABLET PO ×2 (09:17→13:05)
[2022-07-15] MEDS: Acetaminophen 325 MG TABLET 650 MG PO (09:17)
--- NOTE | 2022-07-15 09:49 | P.DS_ITS ---
DS: Providers Provider Date of Service: 07/15/22 Date of admission: 07/11/22 16:01 Date of discharge: 07/15/22 Primary care physician: Unknown Physician Attending physician on admission: Abelardo Greene Attending physician on discharge: Abelardo Greene DS: Diagnosis Discharge Diagnosis (1) Psychotic disorder: Status: Acute (2) Chronic post-traumatic stress disorder (PTSD): Status: Acute (3) Opioid dependence: Status: Acute (4) Cocaine abuse: Status: Acute DS: Medications Discharge Medications Home Medications: Home Medications Medication Instructions Recorded Confirmed methadone 10 mg/mL oral concentrate 50 mg PO BID 07/10/22 07/10/22 Previous Rx's Medication Instructions Recorded albuterol sulfate 2.5 mg/3 mL 2.5 mg (3 mL) inhalation Q6H PRN 07/15/22 (0.083 %) solution for nebulization Shortness Of Breath 30 days #75 mL albuterol sulfate 90 mcg/actuation 2 puff inhalation Q4H PRN wheezing 07/15/22 aerosol inhaler (Ventolin HFA) 30 days #6.7 grams aripiprazole 300 mg intramuscular 300 mg IM QMONTH 4 weeks #1 ea 07/15/22 suspension,extended release (Abilify Maintena) aripiprazole 5 mg tablet 5 mg PO BEDTIME 14 days #14 tabs 07/15/22 clonidine HCl 0.1 mg tablet 0.1 mg PO BID PRN Anxiety/insomnia 07/15/22 30 days #60 tabs fluticasone propionate 110 2 puff inhalation BID asthma 30 07/15/22 mcg/actuation HFA aerosol inhaler days #12 grams (Flovent HFA) Mental Status Exam Mental Status Exam Narrative: Pt is alert and oriented; behavior is cooperative, calm, friendly; patient is not in distress; dressed in casual attire, adequately groomed; mood is described as good and affect congruent, calm, warm; eye contact appropriate; Speech is normal rate, volume and prosody and not pressured; no psychomotor retardation present; thought process is organized and goal directed; Thought content is on feeling better and discharge soon; otherwise pertinent to relevant topics and without any delusional content, paranoid ideations or grandiosity; denies any SI/HI; AH resolved; Patients insight and judgment are fair. Data Data Completed and Pending Completed studies during hospitalization [Text1]: 07/09/22 07/09/22 07/09/22 18:14 18:14 18:14 WBC RBC Hgb Hct MCV MCH MCHC RDW Plt Count MPV Immature Gran % (Auto) Neut % (Auto) Lymph % (Auto) [place] % (Auto) Eos % (Auto) Baso % (Auto) Lymph # (Auto) [place] # (Auto) Eos # (Auto) Baso # (Auto) Abs Immat Gran (auto) Absolute Neuts (auto) Absolute Nucleated RBC Nucleated RBC % (auto) Sodium Potassium Chloride Carbon Dioxide Anion Gap BUN Creatinine Estim Creat Clear Calc Estimated GFR Random Glucose Estimat Average Glucose Hemoglobin A1c % Calcium Magnesium Total Bilirubin AST ALT Alkaline Phosphatase Total Protein Albumin Triglycerides Cholesterol LDL Cholesterol, Calc HDL Cholesterol Vitamin B12 Folate TSH Free T4 Urine Color Yellow Urine Appearance Clear Urine pH 7.5 Ur Specific [place] 1.015 Urine Protein Negative Urine Glucose (UA) Negative Urine Ketones Negative Urine Blood Negative Urine Nitrite Negative Ur Leukocyte Esterase Negative Salicylates Urine Opiates Screen POSITIVE H Urine Fentanyl Screen POSITIVE H Acetaminophen Ur Barbiturates Screen Not Detected Ur Phencyclidine Scrn Not Detected Ur Amphetamines Screen Not Detected U Benzodiazepines Scrn Not Detected Urine Cocaine Screen POSITIVE H U Marijuana (THC) Screen Not Detected Ethyl Alcohol COVID-19 (ISAAC) Negative COVID-19 Clin Com See Note 07/09/22 07/09/22 07/12/22 18:48 18:48 08:07 WBC 7.9 RBC 4.03 L Hgb 11.4 L Hct 35.3 L MCV 87.6 MCH 28.3 MCHC 32.3 RDW 13.0 Plt Count 222 MPV 10.1 Immature Gran % (Auto) 0.1 Neut % (Auto) 59.2 Lymph % (Auto) 32.2 [place] % (Auto) 6.5 Eos % (Auto) 1.4 Baso % (Auto) 0.6 Lymph # (Auto) 2.5 [place] # (Auto) 0.5 Eos # (Auto) 0.1 Baso # (Auto) 0.1 Abs Immat Gran (auto) 0.01 Absolute Neuts (auto) 4.7 Absolute Nucleated RBC 0.000 Nucleated RBC % (auto) 0.0 Sodium 141 Potassium 3.7 Chloride 104 Carbon Dioxide 27 Anion Gap 14 BUN 17 H Creatinine 0.84 Estim Creat Clear Calc 78.9 Estimated GFR > 60 Random Glucose 98 Estimat Average Glucose 91 Hemoglobin A1c % 4.8 Calcium 8.8 Magnesium 1.9 Total Bilirubin 0.3 AST 49 H ALT 35 H Alkaline Phosphatase 91 Total Protein 6.5 Albumin 3.9 Triglycerides Cholesterol LDL Cholesterol, Calc HDL Cholesterol Vitamin B12 Folate TSH Free T4 Urine Color Urine Appearance Urine pH Ur Specific [place] Urine Protein Urine Glucose (UA) Urine Ketones Urine Blood Urine Nitrite Ur Leukocyte Esterase Salicylates < 5.0 L Urine Opiates Screen Urine Fentanyl Screen Acetaminophen < 1 Ur Barbiturates Screen Ur Phencyclidine Scrn Ur Amphetamines Screen U Benzodiazepines Scrn Urine Cocaine Screen U Marijuana (THC) Screen Ethyl Alcohol < 10 COVID-19 (ISAAC) COVID-19 [employer] Com 07/12/22 07/12/22 08:07 08:07 WBC RBC Hgb Hct MCV MCH MCHC RDW Plt Count MPV Immature Gran % (Auto) Neut % (Auto) Lymph % (Auto) [place] % (Auto) Eos % (Auto) Baso % (Auto) Lymph # (Auto) [place] # (Auto) Eos # (Auto) Baso # (Auto) Abs Immat Gran (auto) Absolute Neuts (auto) Absolute Nucleated RBC Nucleated RBC % (auto) Sodium Potassium Chloride Carbon Dioxide Anion Gap BUN Creatinine Estim Creat Clear Calc Estimated GFR Random Glucose Estimat Average Glucose Hemoglobin A1c % Calcium Magnesium 2.1 Total Bilirubin AST ALT Alkaline Phosphatase Total Protein Albumin Triglycerides 59 Cholesterol 165 LDL Cholesterol, Calc 93 HDL Cholesterol 61 Vitamin B12 437 Folate 16.5 TSH 0.61 Free T4 0.91 Urine Color Urine Appearance Urine pH Ur Specific [place] Urine Protein Urine Glucose (UA) Urine Ketones Urine Blood Urine Nitrite Ur Leukocyte Esterase Salicylates Urine Opiates Screen Urine Fentanyl Screen Acetaminophen Ur Barbiturates Screen Ur Phencyclidine Scrn Ur Amphetamines Screen U Benzodiazepines Scrn Urine Cocaine Screen U Marijuana (THC) Screen Ethyl Alcohol COVID-19 ([facility]) COVID-19 Clin Com DS: Summary Hospital Course Hospital Course: HPI: This is a 52-year-old female with reported history of Schizoaffective, depressed type, PTSD,, cocaine and opioid addiction, who presents for worsening depression and recently SI in the face of going off medications and relapsing on both heroin and cocaine.?Not clear which came 1st, the relapse or the AH; endorses [facility] telling her to hurt herself and saying mean things to her causing her much depression.? While PTSD and substance abuse worsen symptoms patient reports having AH even when mood is stable. Pt seen w/ [place] interp: On Admission, she was depressed; she endorsed mild SI w/out plan/intention and AH, however both quickly resolved once she was started on Abilify and got some sleep (had been on before which pt said helped and liked idea of ROJAS so that she would not forget to take it). Pt reported hx of TD and advertising copywriter explained risks/side-effects of Abilify and how it could/would likely exacerbate this symptom however patient feels the benefit outweighs the risk (of note, no TD observed during admission); for that reason, restarted on only 4mg. Pt remained much improved, with brighter affect and resolution of SI/HI and depression. She received ROJAS Maintenna 400mg and wanted to continue with ROJAS; she agreed to 2 week overlap w/ PO. Pt's mood remained good and she was appropriate w/ peers and staf and demonstrated good behavioral and impulse control. Though she had also been on Wellbutrin and Trileptal, pt remained stable and so theses were not restarted. Pt asked for discharge, feeling safe and ready to go home. Patient was not in imminent risk for harm to self or others and request for discharge honored. On discharge, script sent for Abilify Maintena 300mg IM instead of 400mg; reason being that patient stabilized on only 4mg and has hx of TD; thus it's preferable to see if she can remain stable on lower dose of ROJAS. Public Address Systems Mechanic spoke to and left message with remote medical coder for outpt psych provide r, Dr. Anastacia Alcazar and informed of med changes. Time spent discussing smoking cessation with patient: 3 to 10 minutes Status at Discharge Functional status at discharge: independent ambulation Overall status at discharge: patient is back to baseline Time Spent with Patient Time attestation: Total time spent providing and/or coordinating discharge services: Time spent: Greater than 30 minutes Discharge Plan Discharge Anticipated Discharge Date/Time: 07/15/22 19:00 Patient Disposition: Home, Self-Care Discharge Diagnosis: Schizoaffective disorder, depressed type Referrals: Nicole Sims MD [Physician] - 07/18/22 11:30 am (in office) Discharge Medications: New aripiprazole 5 mg tablet 5 mg PO BEDTIME 14 Days Qty: 14 0RF Abilify Maintena 300 mg suspension,extended rel recon 300 mg IM QMONTH 28 Days Qty: 1 0RF Rx Instructions: Last IM was Abilify Maintena 400mg IM on 07/14/22 Continued methadone 10 mg/mL Concentrate 50 mg PO BID Rx Instructions: per per [facility] ([phone]). see pharmacy note albuterol sulfate [Ventolin HFA] 90 mcg/actuation HFA aerosol inhaler 2 puff inhalation Q4H PRN (Reason: wheezing) 30 Days Qty: 6.7 0RF fluticasone propionate [Flovent HFA] 110 mcg/actuation HFA aerosol inhaler 2 puff inhalation BID 30 Days Qty: 12 0RF Changed clonidine HCl 0.1 mg tablet 0.1 mg PO BID PRN (Reason: Anxiety/insomnia) 30 Days Qty: 60 0RF albuterol sulfate 2.5 mg /3 mL (0.083 %) solution for nebulization 2.5 mg inhalation Q6H PRN (Reason: Shortness Of Breath) 30 Days Qty: 75 0RF Discharge Orders: Discharge Order (Routine); Ordered 07/15/22 Ordered By: Abelardo Greene Diet: Regular diet Activity on Discharge: As tolerated Stand Alone Forms: Patient Portal Discharge page Care Plan Goals: Maintain mood and safe behaviors Take medications as prescribed Continue to pursue sobriety Practice coping skills Continue with outpatient providers and reach out to them as needed Health Concerns: Mood stability and behaviors Sobriety Asthma Plan of Treatment: Follow up with your PCP, psychiatric provider and other outpatient providers regarding above concerns Take medications as prescribed Assessment: Risk assessment at time of discharge:? Patient was interviewed prior to discharge and found to be fully oriented and without any SI or HI. Patient has insight and demonstrates good judgment in terms of wanting to pursue treatment. Patient is not in imminent risk of harm to self or others and has a safety plan that includes presenting to the closest ER or calling 911 if feeling unsafe.? Patient has been observed closely by nursing and unit staff throughout admission; patient has not engaged in any behaviors that suggest dangerousness to self or others and has demonstrated appropriate behaviors and impulse control
[2022-07-15] MEDS: Fluticasone Propionate 100 MCG BLST.W.DEV 2 PUFF INHALE (11:14)
[2022-07-15] MEDS: hydrOXYzine HCL 25 MG TABLET PO (11:17)
[2022-07-15 13:06] VITALS: BP 110/62; PULSE 64
== END 2022-07-15 15:34 | disposition home or self-care (01) | DRG 750 ==
LOC: HO.ED 07-10 03:14 → HO.PM5 07-11 16:09
PROVIDERS: Physician Assistant; Admitting Provider Clinical Nurse Specialist Psychiatric/Mental Health, Adult; Emergency Provider Emergency Medicine; Visit Provider Psychiatry & Neurology Psychiatry
DX: F25.1 Schizoaffective disorder, depressive type (principal); R45.851 Suicidal ideations; Z91.14 Patient's other noncompliance with medication regimen; F43.12 Post-traumatic stress disorder, chronic; F11.20 Opioid dependence, uncomplicated; F14.10 Cocaine abuse, uncomplicated; Z20.822 Contact with and (suspected) exposure to COVID-19; Z62.810 Personal history of physical and sexual abuse in childhood; Z88.2 Allergy status to sulfonamides; Z79.51 Long term (current) use of inhaled steroids; Z79.899 Other long term (current) drug therapy
CPT/HCPCS: 36415; 80053; 80061; 80143; 80179; 80307; 81003; 82077; 82607; 82746; 83036; 83735; 84439; 84443; 85025; 87635; 93005; 99285; J0401